=== PATIENT | male | born 1945 | race Caucasian/White ===

== ENCOUNTER → 2016-11-10 | Outpatient (REF) | payer MEDICARE, OTHER ==
[2016-11-10 12:40] LABS: ALBUMIN 3.6 GM/DL (3.2-5.2); ALBUMIN/GLOBULIN RATIO 1.29 (1.00-1.93); ALKALINE PHOSPHATASE 115 U/L (45-117); ALT/SGPT 19 U/L (12-78); ANION GAP 8 MEQ/L (8-16); AST/SGOT 23 U/L (15-37); BILIRUBIN,TOTAL 1.3 MG/DL (0.2-1.0); BLOOD UREA NITROGEN 12 MG/DL (7-18); CARBON DIOXIDE LEVEL 31 MEQ/L (21-32); CHLORIDE LEVEL 104 MEQ/L (98-107); CHOLESTEROL LEVEL 151 MG/DL (<200); GLOMERULAR FILTRATION RATE > 60.0 (>49); GLUCOSE, FASTING 113 MG/DL (80-110); POTASSIUM SERUM 3.3 MEQ/L (3.5-5.1); SODIUM LEVEL 143 MEQ/L (136-145); TOTAL PROTEIN 6.4 GM/DL (6.4-8.2); TRIGLYCERIDES LEVEL 124 MG/DL (<150)
[2016-11-11 14:16] LABS: PSA TOTAL 17.2 ng/mL (0.0-4.0)
== END ==
LOC: M SFHCCLAY 07:04
PROVIDERS: ATTEND Family Medicine
DX: E78.2 Mixed hyperlipidemia (principal); I10 Essential (primary) hypertension; R97.20 Elevated prostate specific antigen [PSA]

== ENCOUNTER → 2016-12-14 | Outpatient (CLI) | payer MEDICARE, OTHER ==
[2016-12-14 18:33] LABS: ANION GAP 7 MEQ/L (8-16); BLOOD UREA NITROGEN 15 MG/DL (7-18); CALCIUM LEVEL 8.7 MG/DL (8.8-10.2); CARBON DIOXIDE LEVEL 30 MEQ/L (21-32); CHLORIDE LEVEL 101 MEQ/L (98-107); CREATININE FOR GFR 0.92 MG/DL (0.70-1.30); GLOMERULAR FILTRATION RATE > 60.0 (>49); GLUCOSE, FASTING 90 MG/DL (80-110); POTASSIUM SERUM 4.5 MEQ/L (3.5-5.1); SODIUM LEVEL 138 MEQ/L (136-145)
== END ==
LOC: M SMT 11:53
PROVIDERS: ATTEND Nurse Practitioner Women's Health
DX: R97.20 Elevated prostate specific antigen [PSA] (principal)
CPT/HCPCS: 36415; 80048; G0463

== ENCOUNTER → 2016-12-22 | Outpatient (CLI) | payer MEDICARE, OTHER ==
--- NOTE | 2016-12-22 18:30 | REP ---
MULTIPARAMETRIC PROSTATE MRI STUDY WITH PRE AND POST GADOLINIUM ENHANCED IMAGING: TECHNIQUE: Using a phased array surface coil, small field of view imaging was acquired using T2-weighted scans in the axial, coronal, and sagittal imaging planes. Small field of view diffusion-weighted sequences are acquired. Small field of view axial T1-weighted scans are acquired dynamically after the intravenous administration of 17 mL of ProHance. Using a large field of view, the entire pelvis to the level of the aortic bifurcation was imaged using pre-contrast axial T1 and post-contrast axial T1 fat-saturation images. HISTORY: Elevated prostate specific antigen. COMPARISON: Prior MRI 01/22/2015. FINDINGS: There is no evidence of pelvic adenopathy or inguinal adenopathy. No suspicious bone lesions are seen. Prostate measurements are 6.1 x 5.4 x 4.5 cm for a total volume of 69.7 mL. There is nodular low and high signal with hypertrophy of the central gland and transitional zone consistent with prostatic hypertrophy. No definite abnormality is seen of the seminal vesicles. Three focal areas of abnormal signal intensity, contrast enhancement and diffusion signal are identified and the prostate gland has regions of interest. First in the left transitional zone extending from the base to the apex, is an oval area of ill-defined predominantly low signal on T2 demonstrating predominantly type 3 enhancement characteristics. The area measures 3.8 x 1.3 x 3.3 cm for a total volume of 10.6 mL. Overall level of suspicion is 3 out of 5 with a clinically significant cancer equivocal. Second in the right mid and basilar anterior transitional zone and right apical transitional zone, is an oval area of predominantly low signal on T2 with ill defined margins. The area measures 2.5 x 1.9 x 3.3 cm for a total volume of 5.6 mL. Enhancement characteristics are predominantly type 3. Overall level of suspicion is 3 out of 5 with clinically significant cancer equivocal. In the left mid and apical posterior peripheral zone and right apical medial peripheral zone there are linear geographic areas of somewhat low signal on T2. These areas demonstrate type 1 and type 2 enhancement. This may represent an area of prostatitis. The area measures approximately 4.1 x 1.0 x 2.0 cm for a total volume of 3.85 mL. Overall level of suspicion is 2 out of 5 with clinically significant cancer unlikely to be present. IMPRESSION: Three focal abnormalities in the prostate gland are identified as regions of interest in the Dyn[employer] software for MR ultrasound fusion biopsy. Signed by Mj Mcfarland MD 12/24/2016 07:02 P
== END ==
LOC: M RAD 10:46
PROVIDERS: ATTEND Nurse Practitioner Women's Health
DX: N42.9 Disorder of prostate, unspecified (principal)
CPT/HCPCS: 72197; A9576

== ENCOUNTER → 2017-01-08 | Outpatient (CLI) | payer MEDICARE, OTHER ==
--- NOTE | 2017-01-08 12:17 | REP ---
TRANSRECTAL PROSTATE ULTRASOUND WITH ULTRASOUND GUIDANCE FOR PROSTATE BIOPSY: Transrectal prostate ultrasound performed showing prostate to measure 5.4 x 4.0 x 6.0 cm for a total volume of 67.2 mL. Transrectal ultrasound guidance was provided for biopsy of the prostate utilizing MR ultrasound fusion software. Signed by Mj Mcfarland MD 01/08/2017 05:21 P
== END ==
LOC: M SMT PRO 08:06
PROVIDERS: ATTEND Urology
DX: R97.20 Elevated prostate specific antigen [PSA] (principal); N41.8 Other inflammatory diseases of prostate
CPT/HCPCS: 55700; 76872; 76942; G0416

== ENCOUNTER → 2017-04-07 | Outpatient (REF) | payer MEDICARE, OTHER ==
[2017-04-08 14:17] LABS: PSA FREE 0.88 ng/mL; PSA TOTAL 9.8 ng/mL (0.0-4.0)
== END ==
LOC: M SFHCCLAY 07:29
PROVIDERS: ATTEND Urology
DX: R97.20 Elevated prostate specific antigen [PSA] (principal)

== ENCOUNTER → 2017-09-20 | Outpatient (CLI) | payer MEDICARE, OTHER | LOC: M CLY 09:40 | DX: R50.9 Fever, unspecified (principal); R05 Cough; R93.8 Abnormal findings on diagnostic imaging of other specified body structures | CPT/HCPCS: 71046; 87804 ==

== ENCOUNTER → 2017-10-11 | Outpatient (REF) | payer MEDICARE, OTHER ==
[2017-10-11 12:02] LABS: ALBUMIN 3.7 GM/DL (3.2-5.2); ALBUMIN/GLOBULIN RATIO 1.12 (1.00-1.93); ALKALINE PHOSPHATASE 127 U/L (45-117); ALT/SGPT 21 U/L (12-78); ANION GAP 11 MEQ/L (8-16); AST/SGOT 20 U/L (7-37); BILIRUBIN,TOTAL 0.7 MG/DL (0.2-1.0); BLOOD UREA NITROGEN 16 MG/DL (7-18); CALCIUM LEVEL 9.4 MG/DL (8.8-10.2); CARBON DIOXIDE LEVEL 27 MEQ/L (21-32); CHLORIDE LEVEL 104 MEQ/L (98-107); CHOLESTEROL LEVEL 160 MG/DL (<200); CHOLESTEROL RISK RATIO 2.285 (<5); GLOMERULAR FILTRATION RATE > 60.0 (>49); GLUCOSE, FASTING 107 MG/DL (70-100); HDL CHOLESTEROL 70 MG/DL (>40); LDL CHOLESTEROL 71.2 MG/DL (<100); NON-HDL-C 90 MG/DL; POTASSIUM SERUM 4.3 MEQ/L (3.5-5.1); SODIUM LEVEL 142 MEQ/L (136-145); TRIGLYCERIDES LEVEL 94 MG/DL (<150)
[2017-10-13 00:06] LABS: PSA TOTAL 11.7 ng/mL (0.0-4.0)
== END ==
LOC: M SFHCCLAY 07:03
DX: E78.2 Mixed hyperlipidemia (principal); R97.20 Elevated prostate specific antigen [PSA]; I10 Essential (primary) hypertension
CPT/HCPCS: 84443

== ENCOUNTER → 2018-04-11 | Outpatient (REF) | payer MEDICARE, OTHER ==
[2018-04-11 13:51] LABS: PROSTATIC SPECIFIC AG MONITOR 8.85 NG/ML (< 4.0)
== END ==
LOC: M SFHCCLAY 07:13
DX: R97.20 Elevated prostate specific antigen [PSA] (principal)
CPT/HCPCS: 84153

== ENCOUNTER → 2018-05-12 | Outpatient (REF) | payer MEDICARE, OTHER | LOC: M LAB REF 17:27 | DX: D22.5 Melanocytic nevi of trunk (principal) | CPT/HCPCS: 88305 ==

== ENCOUNTER → 2018-08-24 | Outpatient (CLI) | payer MEDICARE, OTHER ==
--- NOTE | 2018-08-24 14:11 | REP ---
Clinical: Trauma. Technique: AP, lateral, bilateral oblique views of the left ankle. Findings: Diffuse soft tissue swelling is appreciated. Age-related degenerative changes are appreciated including elements of chondrocalcinosis. No acute fracture or dislocation. Impression: Swelling. No acute fracture or dislocation. Electronically Signed by Vahid Hwang MD 08/24/2018 02:02 P
== END ==
LOC: M CLY 13:40
PROVIDERS: ATTEND Nurse Practitioner Family
DX: R22.42 Localized swelling, mass and lump, left lower limb (principal); S99.912A Unspecified injury of left ankle, initial encounter; W10.8XXA Fall (on) (from) other stairs and steps, initial encounter; Y92.89 Other specified places as the place of occurrence of the external cause; Y93.H1 Activity, digging, shoveling and raking
CPT/HCPCS: 73610; G0463

== ENCOUNTER → 2018-10-11 | Outpatient (REF) | payer MEDICARE, OTHER ==
[2018-10-12 15:14] LABS: PSA % FREE 9.7 % (.); PSA FREE 0.88 ng/mL; PSA TOTAL 9.1 ng/mL (0.0-4.0)
== END ==
LOC: M LABSMT 07:50 → M LABDRAWC 07:56
PROVIDERS: ATTEND Nurse Practitioner Women's Health
DX: R97.20 Elevated prostate specific antigen [PSA] (principal)

== ENCOUNTER → 2019-03-29 | Outpatient (REF) | payer MEDICARE, OTHER ==
[2019-03-29 11:53] LABS: BLOOD UREA NITROGEN 13 MG/DL (7-18); CALCIUM LEVEL 9.3 MG/DL (8.8-10.2); CARBON DIOXIDE LEVEL 31 MEQ/L (21-32); CHLORIDE LEVEL 104 MEQ/L (98-107); CREATININE FOR GFR 0.94 MG/DL (0.70-1.30); GLOMERULAR FILTRATION RATE > 60.0 (>42); GLUCOSE, FASTING 104 MG/DL (70-100); SODIUM LEVEL 143 MEQ/L (136-145)
== END ==
LOC: M LABDRAWC 11:12
PROVIDERS: ATTEND Internal Medicine Cardiovascular Disease
DX: I10 Essential (primary) hypertension (principal)

== ENCOUNTER → 2019-04-14 | Outpatient (REF) | payer MEDICARE, OTHER ==
[2019-04-14 12:14] LABS: ALBUMIN 3.4 GM/DL (3.2-5.2); ALT/SGPT 26 U/L (12-78); BILIRUBIN,TOTAL 0.8 MG/DL (0.2-1.0); BLOOD UREA NITROGEN 19 MG/DL (7-18); CALCIUM LEVEL 8.9 MG/DL (8.8-10.2); CARBON DIOXIDE LEVEL 32 MEQ/L (21-32); CHLORIDE LEVEL 98 MEQ/L (98-107); CHOLESTEROL LEVEL 143 MG/DL (<200); CHOLESTEROL RISK RATIO 2.344 (<5); CREATININE FOR GFR 1.01 MG/DL (0.70-1.30); GLOMERULAR FILTRATION RATE > 60.0 (>42); GLUCOSE, FASTING 105 MG/DL (70-100); HDL CHOLESTEROL 61 MG/DL (>40); LDL CHOLESTEROL 62 MG/DL (<100); NON-HDL-C 82 MG/DL; POTASSIUM SERUM 4.3 MEQ/L (3.5-5.1); SODIUM LEVEL 137 MEQ/L (136-145); TOTAL PROTEIN 6.4 GM/DL (6.4-8.2); TRIGLYCERIDES LEVEL 101 MG/DL (<150); TROPONIN I < 0.02 NG/ML (< 0.10)
== END ==
LOC: M LABDRAWC 11:37
PROVIDERS: ATTEND Internal Medicine Cardiovascular Disease
DX: E78.5 Hyperlipidemia, unspecified (principal); R07.9 Chest pain, unspecified

== ENCOUNTER → 2019-04-14 | Outpatient (REF) | payer MEDICARE, OTHER ==
[2019-04-15 14:07] LABS: PSA % FREE 11.1 % (.); PSA FREE 0.69 ng/mL; PSA TOTAL 6.2 ng/mL (0.0-4.0)
== END ==
LOC: M SFHCCLAY 06:59
PROVIDERS: ATTEND Nurse Practitioner Women's Health
DX: R97.20 Elevated prostate specific antigen [PSA] (principal); E78.5 Hyperlipidemia, unspecified; R07.9 Chest pain, unspecified

== ENCOUNTER → 2019-11-07 | Outpatient (REF) | payer MEDICARE, OTHER | LOC: M SFHCCLAY 07:14 | PROVIDERS: ATTEND Urology | DX: R97.20 Elevated prostate specific antigen [PSA] (principal) ==

== ENCOUNTER → 2019-12-26 | Outpatient (REF) | payer MEDICARE, OTHER | LOC: M LAB REF 08:53 | PROVIDERS: ATTEND Dermatology | DX: L72.0 Epidermal cyst (principal) ==

== ENCOUNTER → 2020-02-21 | Outpatient (REF) | payer MEDICARE, OTHER ==
[2020-03-28 05:55] LABS: BLOOD UREA NITROGEN 18 MG/DL (7-18); CARBON DIOXIDE LEVEL 32 MEQ/L (21-32); CHLORIDE LEVEL 101 MEQ/L (98-107); CREATININE FOR GFR 0.96 MG/DL (0.70-1.30); GLOMERULAR FILTRATION RATE > 60.0 (>42); GLUCOSE, FASTING 115 MG/DL (70-100); POTASSIUM SERUM 3.1 MEQ/L (3.5-5.1); SODIUM LEVEL 140 MEQ/L (136-145)
== END ==
LOC: M SFHCCLAY 14:48
PROVIDERS: ATTEND Family Medicine
DX: L03.116 Cellulitis of left lower limb (principal)

== ENCOUNTER → 2020-04-30 | Outpatient (REF) | payer MEDICARE, OTHER ==
[2020-05-02 00:10] LABS: PSA TOTAL 3.5 ng/mL (0.0-4.0)
== END ==
LOC: M SFHCCLAY 07:07
PROVIDERS: ATTEND Urology
DX: R97.20 Elevated prostate specific antigen [PSA] (principal)

== ENCOUNTER → 2020-08-30 | Outpatient (CLI) | payer MEDICARE, OTHER ==
[~2020-08-30] MED LIST: ASPI81TA26 PO; ATOR80TA59; CHLO50TA; EZET10TA21; FINA5TAB2; LOSA100T50; TAMS1CAP17
== END ==
LOC: M LABSMTC 11:15
PROVIDERS: ATTEND Anesthesiology
DX: Z01.812 Encounter for preprocedural laboratory examination (principal); Z20.822 Contact with and (suspected) exposure to COVID-19

== ENCOUNTER 2020-09-04 07:49 | Day surgery (SDC) | payer MEDICARE, OTHER ==
[~2020-09-04] VITALS: Ht 172.7 cm; Wt 88.9 kg
[~2020-09-04 07:49] MED LIST changes: +LIDOCAINE 2% 100MG/5ML SDV (FOR ANES.) As Ordered ONE; +NS 1,000 ML IV ONE; +propofoL 200 MG/20 ML VIAL As Ordered ONE
--- OUTSIDE RECORDS SUMMARY | 2020-09-04 07:53 | CCD | Continuity of Care Document ---
Author Author Donavan MESA PMarAMar Organization Unknown Address [address] [place] [address] Phone [phone] Care Team Providers Care Baker Bread Name Role Phone Jasvir ManM [phone] Problems Description No Information Available Social History Type Date Description Comments Sex Unknown Tobacco Use Start: Unknown End: Unknown Patient is a former smoker Allergies, Adverse Reactions, Alerts Description No Information Available Medications Active Medications SIG Qnty Indications Ordering Provide r Date Euflexxa 20mg/2ML Soln Prefill Syr prasanna rt knee euflexxa #1 06/25/2020 mkm/bc rt knee#2 mkm/tf 07/23/2020 rt knee #3 mkm/hd 08/01/20 Dex Ramírez MD 07/11/2020 Chlorthalidone 50mg Tablets Unknown Losartan Potassium 100mg Tablets Unknown Ezetimibe 10mg Tablets Unknown Atorvastatin Calcium 80mg Tablets Unknown Tamsulosin HCL 0.4mg Capsules Unknown Finasteride 5mg Tablets Unknown Aspirin 81 Low Dose 81mg Chewtabs Unknown Advair Diskus 250-50mcg/Dose Aeros ol 1 puff twice a day Unknown Ventolin HFA 108(90Base) mcg/Act A erosol 2 puffs qid/prn Unknown Nitroglycerin 0.4mg Tablets Sub as needed Unknown Montelukast Sodium 10mg Tablets 1 by mouth every day Unknown Immunizations Description No Information Available Vital Signs Date Vital Result Comment 07/09/2020 10:57am Body Temperature 97.1 F Height 67.5 inches 5'7.50" Weight 196.50 lb BMI (Body Mass Index) 30.3 kg/m2 Results Description No Information Available Procedures Date Code Description Status 08/01/2020 Inject/Drain Joint/Bursa Major C ompleted 07/23/2020 Inject/Drain Joint/Bursa Major C ompleted 07/11/2020 Inject/Drain Joint/Bursa Major C ompleted 05/09/2020 60665 X-Ray Knee Ap & Lateral W/Obliqu es Three Views Completed 05/09/2020 Inject/Drain Joint/Bursa Major C ompleted Medical Devices Description No Information Available Encounters Type Date Location Provider Dx Diagnosis Office Visit 07/23/2020 6:30p Dylan Cooper.A. M17.11 Unilateral primary osteoarthritis, right knee Office Visit 07/11/2020 3:30p Dylan Cooper.AMar M17.11 Unilateral primary osteoarthritis, right knee Office Visit 07/09/2020 11:00a Adriel Sierra MD M1 7.11 Unilateral primary osteoarthritis, right knee Office Visit 05/09/2020 10:45a Adriel Sierra MD M1 7.11 Unilateral primary osteoarthritis, right knee Assessments Date Code Description Provider 08/01/2020 M17.11 Unilateral primary osteoarthriti s, right knee Dylan Fierro.A. 07/23/2020 M17.11 Unilateral primary osteoarthriti s, right knee Corey Mesa P.A. 07/11/2020 M17.11 Unilateral primary osteoarthriti s, right knee Corey Mesa P.A. 07/09/2020 M17.11 Unilateral primary osteoarthriti s, right knee Rajesh Sierra MD 07/09/2020 M17.11 Unilateral primary osteoarthriti s, right knee Rajesh Sierra MD 05/09/2020 M17.11 Unilateral primary osteoarthriti s, right knee Rajesh Sierra MD Plan of Treatment No Information Available Functional Status Description No Information Available Mental Status Description No Information Available Referrals Refer to Reason for Referral Status Appt Date Shona Sierra MD Right knee Euflexxa-No autho rization req- Passing to sched. MLB Created [facility], [address] [place] [address] [phone]
--- OUTSIDE RECORDS SUMMARY | 2020-09-04 07:53 | CCD | Continuity of Care Document ---
Author Author Donavan GIRALDO PMarAMar Organization Unknown Address [address] [place] [address] Phone [phone] Care Team Providers Care Cutter Grind Tool Technician Name Role Phone Jasvir ManM [phone] Problems Description No Information Available Social History [...] Information Available Procedures Date Code Description Status 07/23/2020 Inject/Drain Joint/Bursa Major C ompleted 07/11/2020 Inject/Drain Joint/Bursa Major C ompleted 05/09/2020 62751 X-Ray Knee Ap & Lateral W/Obliqu es Three Views Completed 05/09/2020 Inject/Drain Joint/Bursa Major C ompleted Medical Devices Description No Information Available Encounters Type Date Location Provider Dx Diagnosis Office Visit 07/23/2020 6:30p [facility] M17.11 Unilateral primary osteoarthritis, right knee Office Visit 07/11/2020 3:30p [facility] Ern[facility] M17.11 Unilateral primary osteoarthritis, right knee Office Visit 07/09/2020 11:00a Haskellkyrie Sierra MD M1 7.11 Unilateral primary osteoarthritis, right knee Office Visit 05/09/2020 10:45a Haskellkyrie Sierra MD M1 7.11 Unilateral primary osteoarthritis, right knee Assessments Date Code Description Provider 07/23/2020 M17.11 Unilateral primary osteoarthriti s, right knee Shannon FierroA. 07/11/2020 M17.11 Unilateral primary osteoarthriti s, right knee Shannon FierroA. 07/09/2020 M17.11 Unilateral primary osteoarthriti s, right knee Rajesh Sierra MD 07/09/2020 M17.11 Unilateral primary osteoarthriti s, right knee Rajesh Sierra MD 05/09/2020 M17.11 Unilateral primary osteoarthriti s, right knee Rajesh Sierra MD Plan of Treatment No Information Available Functional Status Description No Information Available Mental Status Description No Information Available Referrals Refer to Reason for Referral Status Appt Shona Sierra MD Right knee Euflexxa-No autho rization req- Passing to sched. MLB Created [address] [place] [address], [address] [place] [address] [phone]
--- OUTSIDE RECORDS SUMMARY | 2020-09-04 07:53 | CCD | Continuity of Care Document ---
Author Author Donavan SIERRA MD Organization Unknown Address [address] [place] [address], [address] [address] Phone [phone] Care Team Providers Care Insurance Instructor Name Role Phone Jasvir ManM [phone] Problems Description No Information Available Social History Type Date Description Comments Sex Unknown Tobacco Use Start: Unknown End: Unknown Patient is a former smoker Allergies, Adverse Reactions, Alerts Description No Information Available Medications Active Medications SIG Qnty Indications Ordering Provide r Date Euflexxa 20mg/2ML Soln Prefill Syr prasanna rt knee euflexxa #1 06/25/2020 mkm/bc rt knee#2 MKM/TF 07/23/2020 Dex Ramírez MD 07/11/2020 Chlorthalidone 50mg Tablets [...] 07/11/2020 Inject/Drain Joint/Bursa Major C ompleted 05/09/2020 04292 X-Ray Knee Ap & Lateral W/Obliqu es Three Views Completed 05/09/2020 Inject/Drain Joint/Bursa Major C ompleted Medical Devices Description No Information Available Encounters Type Date Location Provider Dx Diagnosis Office Visit 07/23/2020 6:30p [facility] M17.11 Unilateral primary osteoarthritis, right knee Office Visit 07/11/2020 3:30p [facility] M17.11 Unilateral primary osteoarthritis, right knee Office Visit 07/09/2020 11:00a [place] Rajesh Sierra MD M1 7.11 Unilateral primary osteoarthritis, right knee Office Visit 05/09/2020 10:45a [place] Rajesh Sierra MD M1 7.11 Unilateral primary osteoarthritis, right knee Assessments Date Code Description Provider 07/23/2020 M17.11 Unilateral primary osteoarthriti s, right knee Shannon FierroAMar 07/11/2020 M17.11 Unilateral primary osteoarthriti s, right knee Shannon FierroA. 07/09/2020 M17.11 Unilateral primary osteoarthriti s, right knee Rajesh Sierra MD 07/09/2020 M17.11 Unilateral primary osteoarthriti s, right knee Rajesh Sierra MD 05/09/2020 M17.11 Unilateral primary osteoarthriti s, right knee Rajesh Sierra MD Plan of Treatment Future Appointment(s):* 08/01/2020 5:00 pm - [facility] Fierro at [place] Functional Status Description No Information Available Mental Status Description No Information Available Referrals Refer to Dr Reason for Referral Status Appt Date Shona Sierra MD Right knee Euflexxa-No autho rization req- Passing to sched. MLB Created [address] [facility], [address] [place] [address] [phone]
--- OUTSIDE RECORDS SUMMARY | 2020-09-04 07:53 | CCD | Continuity of Care Document ---
Author Author Donavan MESA PMarAMar Organization Unknown Address [address] [place] [address] Phone [phone] Care Team Providers Care Division Supervisor Name Role Phone Jasvir ManM [phone] Problems Description No Information Available Social History [...] 07/11/2020 Inject/Drain Joint/Bursa Major C ompleted 05/09/2020 40884 X-Ray Knee Ap & Lateral W/Obliqu es Three Views Completed 05/09/2020 Inject/Drain Joint/Bursa Major C ompleted Medical Devices Description No Information Available Encounters Type Date Location Provider Dx Diagnosis Office Visit 08/01/2020 5:00p Shannon CooperAMar M17.11 Unilateral primary osteoarthritis, right knee Office Visit 07/23/2020 6:30p Shannon CooperAMar M17.11 Unilateral primary osteoarthritis, right knee Office Visit 07/11/2020 3:30p Shannon CooperAMar M17.11 Unilateral primary osteoarthritis, right knee Office Visit 07/09/2020 11:00a Adriel Sierra MD M1 7.11 Unilateral primary osteoarthritis, right knee Office Visit 05/09/2020 10:45a Adriel Sierra MD M1 7.11 Unilateral primary osteoarthritis, right knee Assessments Date Code Description Provider 08/01/2020 M17.11 Unilateral primary osteoarthriti s, right knee Corey Mesa P.A. 07/23/2020 M17.11 Unilateral primary osteoarthriti s, right knee Shannon FierroA. 07/11/2020 M17.11 Unilateral primary osteoarthriti s, right knee Dylan Fierro.A. 07/09/2020 M17.11 Unilateral primary osteoarthriti s, right [...] rization req- Passing to sched. MLB Created [facility], [address] [place] [address] [phone]
--- OUTSIDE RECORDS SUMMARY | 2020-09-04 07:53 | CCD ---
Author Author [facility] Organization [facility] Address Unknown Phone Unavailable Care Team Providers Care Glass Blowing Instructor Name Role Phone Abby Moran Unavailable PROBLEMS Type Condition ICD9-CM Code XEA07-MR Code Onset Dates Condition S tatus SNOMED Code Notes Problem Elevated PSA R97.2 Active 302554957 Problem Decreased libido R68.82 Active 8686921 Problem Essential hypertension I10 Active 19298758 Problem Mixed hyperlipidemia E78.2 Active 478855436 Problem Keratinous cyst L72.0 Active 869591428 Problem Franks angioma D18.01 Active 6179976 Problem PSA elevation R97.20 Active 908957854 Problem Coronary artery disease invo lving hoh coronary artery of hoh heart, angina presence unspecified I25.10 Active 1 247033223689 Problem Chronic obstructive pulmonary disease, unspecified COPD ty pe J44.9 Active 29278240 Problem Lower urinary tract symptoms due to benign prost atic hyperplasia N40.1 Active 858177639 Problem Other skin changes due to chronic exposure to no nionizing radiation L57.8 Active 293960884 Problem Xerosis cutis L85.3 Active 11566160 Problem Seborrheic keratoses L82.1 Active 312731589 Problem Lentigines L81.4 Active 862567977 Problem Acrochordon L91.8 Active 974185932 Problem Nevus of scalp D22.4 Active 657276076 Problem Elevated prostate specific antigen [PSA] R97.20 Active 031570552 Problem Dyslipidemia E78.5 Active 788760199 Problem Fatigue, unspecified type R53.83 Active 426536 01 Problem Hypertensive heart disease without heart failure I 11.9 Active 89844830 Problem Arthropathy M12.9 Active 966714176 Problem Benign prostatic hyperplasia without lower urina ry tract symptoms N40.0 Active 621996170 Problem 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 Active 0574488376 102 Problem History of elevated PSA Z87.898 Active 37306491 5 Problem BPH (benign prostatic hypertrophy) with urinary obstructio n N40.1 Active 384972412 Problem Memory impairment R41.3 Active 863647881 ALLERGIES Allergen (clinical drug ingredient) Drug/Non Drug Allergy do cumented on EMR Reaction Allergy Type Onset Date Status acetaminophen / hydrocodone Hydrocodone-Acetaminophen([facility] Co de:[address]-71) Nausea/Vomiting Drug Allergy Active ENCOUNTERS from 1945 to 2020-07-29 Encounter Location Date Provider Diagnosis [facility] [address] [place] [address] Jul Abby Moran IMMUNIZATIONS Vaccine Route Administration Date Status Pneumococcal Adult 0.5mL (Pneumovax 23) IM Intramuscular Jun 22, 2018 Administered Influenza (High Dose 65 & up) IM Intramuscular May 07, 2017 A dministered Influenza (High Dose 65 & up) IM Intramuscular May 19, 2016 A dministered Influenza (High Dose 65 & up) IM Intramuscular May 01, 2015 A dministered TDAP 0.5mL (Boostrix) IM Intramuscular January 13, 2011 Administe red Pneumococcal 0.5mL (Prevnar 13) IM Intramuscular May 19, 2016 Administered Influenza (18 yrs & older) Flublok IM Intramuscular May 20, 2018 Administered Influenza (6mo & up) Fluzone Unknown Jun 18, 2015 Ref used Influenza (18 yrs & older) Flublok IM Intramuscular May 20, 2020 Administered Influenza (6mo & up) Fluzone IM Apr 27, 2012 Adm inistered Influenza (6mo & up) Fluzone IM Jul 15, 2010 Adm inistered SOCIAL HISTORY Tobacco Use: Social History Observation Description Date Details (start date - stop date) Former Smoker Sex Assigned At : Social History Observation Description Sex Assigned At Unknown Education: Question Answer Notes Level of Education: Finished High School Audit Question Answer Notes Total Score: 4 Interpretation: Alcohol Education Sexual Hx: Question Answer Notes Had sex in the last 12 months (vaginal, oral, or anal)? No Have you ever had an STD? No Drug and Alcohol Question Answer Notes Total Score: 0 Interpretation: No problems reported BMI Care Goal Follow-Up Question Answer Notes Above Normal BMI Follow-Up Giving encouragement to exercise Tobacco Use: Question Answer Notes Are you a: former smoker Quit around 1989 How long has it been since you last smoked? > 10 years REASON FOR REFERRAL No Information VITAL SIGNS No information MEDICATIONS Medication SIG (Take, Route, Frequency, Duration) Notes Start Da te End Date Status Advair Diskus 250-50 MCG/DOSE 1 puff Inhalation Twice a day Oct, Active Chlorthalidone 50 MG 1 tablet in the morning with food Orally Once a day for 30 day(s) Active Losartan Potassium 100 MG 1 tablet Orally Once a day for 90 day(s) Active Aspir-81 81 MG 1 tablet Orally Once a day Active Nitroglycerin 0.4 MG 1 tablet under the tongue an d allow to dissolve as needed Sublingual as directed prn chest pain Active Atorvastatin Calcium 80 MG 1 tablet Orally Once a day for 90 days Active Finasteride 5 MG 1 tablet Orally Once a day for 90 day(s) Mar, Active Tamsulosin HCl 0.4 MG 1 capsule 30 minutes after t he same meal each day Orally Once a day for 90 days Mar, Active Ventolin HFA 108 (90 Base) MCG/ACT 2 puffs as needed I nhalation every 4 hrs for wheezing or chest congestion for 90 day(s) Oct, Active Ezetimibe 10 MG 1 tablet Orally Once a day for 90 days Active PROCEDURES No Information RESULTS No Results REASON FOR VISIT No Information MEDICAL (GENERAL) HISTORY Type Description Date Medical History Hypertension Medical History Hypercholesterolemia Medical History BPH Medical History Elevated PSA Medical History Dry eyes Medical History CAD with stent placement: [facility] : [place] Surgical History Hemorrhoidectomy 1970 Surgical History Lt knee arthroscopy 1977 Surgical History TRUS Bx 2009 Surgical History Rt knee arthroscopy 2009 Surgical History TRUS Biopsy 01/03/2014 Surgical History 2 heart stents 10/20/16 Surgical History MRI FUSION BX 01/08/17 Surgical History Prostate Biopsy 11/2016 Hospitalization History Surgical Related Hospitalization History Swollen feet-[facility] ER [facility] 02/2015 [facility] Goals Section No Information Health Concerns No Information MEDICAL EQUIPMENT No Information MENTAL STATUS No Information FUNCTIONAL STATUS No Information ASSESSMENTS No Information PLAN OF TREATMENT Medication Medication Name Sig Start Date Stop Date Finasteride 5 MG 1 tablet Orally Once a day for 90 day(s) Mar Advair Diskus 250-50 MCG/DOSE 1 puff Inhalation Twice a day 25 A pr, 2017 Ezetimibe 10 MG 1 tablet Orally Once a day for 90 days Next Appt Details Provider Name:Abby Dean, 2020-07 01:00:00 PM, [address] [place], [address], Provider Name:Luis Hart, 2020-12 09:15:00 AM, [address] [facility], [address] Floor, [place], [address], Provider Name:Norm Nuñez, 10:30:00 AM, [address], [place], [address], Insurance Providers Payer Name Payer Address Payer Phone Insured Name Patient Relati onship to Insured Coverage Start Date Coverage End Date FOR LIFE [address] [facility] [phone] NATI GARCÍA MEDICARE Part A and B [address] [facility] [id number] NATI ROSAS 2012
--- OUTSIDE RECORDS SUMMARY | 2020-09-04 07:54 | CCD | Continuity of Care Document ---
Author Author Donavan SIERRA MD Organization Unknown Address [address] [place] [address], [facility] e [address] [place] [address] Phone [phone] Care Team Providers Care Fur Glosser Name Role Phone Jasvir ManM [phone] Problems Description No Information Available Social History [...] 07/11/2020 Inject/Drain Joint/Bursa Major C ompleted 05/09/2020 65341 X-Ray Knee Ap & Lateral W/Obliqu es Three Views Completed 05/09/2020 Inject/Drain Joint/Bursa Major C ompleted Medical Devices Description No Information Available Encounters Type Date Location Provider Dx Diagnosis Office Visit 07/23/2020 6:30p [facility] Shannon FierroAMar M17.11 Unilateral primary osteoarthritis, right knee Office Visit 07/11/2020 3:30p [facility] M17.11 Unilateral primary osteoarthritis, right knee Office Visit 07/09/2020 11:00a [facility] Rajesh Sierra MD M1 7.11 Unilateral primary osteoarthritis, right knee Office Visit 05/09/2020 10:45a [facility] Rajesh Sierra MD M1 7.11 Unilateral primary [...] 08/01/2020 5:00 pm - [facility] Fierro at [facility] Functional Status Description No Information Available Mental Status Description No Information Available Referrals Refer to Dr Reason for Referral Status Appt Date Shona Sierra MD Right knee Euflexxa-No autho rization req- Passing to sched. MLB Created [address] [facility], [address] [place] [address] [phone]
--- OUTSIDE RECORDS SUMMARY | 2020-09-04 07:54 | CCD ---
Author Author [facility] Organization [facility] Address Unknown Phone Unavailable Care Team Providers Care Research Lab Assistant Name Role Phone HernanCarlos trangan Unavailable PROBLEMS Type Condition ICD9-CM Code [id number] Code Onset Dates Condition S tatus SNOMED Code Notes Problem Elevated PSA R97.2 Active 339783392 Problem Decreased libido R68.82 Active 6408118 Problem Essential hypertension I10 Active 49998935 Problem Mixed hyperlipidemia E78.2 Active 086776607 Problem Keratinous cyst L72.0 Active 525480176 Problem Franks angioma D18.01 Active 5150979 Problem PSA elevation R97.20 Active 482542587 Problem Coronary artery disease invo lving [place] coronary artery of [place] heart, angina presence unspecified I25.10 Active 1 082167154361 Problem Chronic obstructive pulmonary disease, unspecified COPD ty pe J44.9 Active 13230844 Problem Lower urinary tract symptoms due to benign prost atic hyperplasia N40.1 Active 222540872 Problem Other skin changes due to chronic exposure to no nionizing radiation L57.8 Active 394640753 Problem Xerosis cutis L85.3 Active 35870306 Problem Seborrheic keratoses L82.1 Active 919904487 Problem Lentigines L81.4 Active 563903475 Problem Acrochordon L91.8 Active 040295622 Problem Nevus of scalp D22.4 Active 480963457 Problem Elevated prostate specific antigen [PSA] R97.20 Active 544221784 Problem Dyslipidemia E78.5 Active 169421369 Problem Fatigue, unspecified type R53.83 Active 791957 01 Problem Hypertensive heart disease without heart failure I 11.9 Active 60774963 Problem Arthropathy M12.9 Active 506995251 Problem Benign prostatic hyperplasia without lower urina ry tract symptoms N40.0 Active 585322927 Problem 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 Active 4773683906 102 Problem History of elevated PSA Z87.898 Active 27056613 5 Problem BPH (benign prostatic hypertrophy) with urinary obstructio n N40.1 Active 293600402 Problem Memory impairment R41.3 Active 352543548 ALLERGIES Allergen (clinical drug ingredient) Drug/Non Drug Allergy do cumented on EMR Reaction Allergy Type Onset Date Status acetaminophen / hydrocodone Hydrocodone-Acetaminophen([facility] Co de:[address]-17) Nausea/Vomiting Drug Allergy Active ENCOUNTERS from 1945 to 2020-07-06 Encounter Location Date Provider Diagnosis [facility] [address] [place] [address] Jun Abby Moran IMMUNIZATIONS Vaccine Route Administration Date Status Influenza (High Dose 65 & up) IM Intramuscular May 07, 2017 A dministered Influenza (High Dose 65 & up) IM Intramuscular May 19, 2016 A dministered Influenza (High Dose 65 & up) IM Intramuscular May 01, 2015 A dministered Pneumococcal Adult 0.5mL (Pneumovax 23) IM Intramuscular Jun 22, 2018 Administered TDAP 0.5mL (Boostrix) IM Intramuscular January 13, [...] Information RESULTS No Results REASON FOR VISIT elevated bp MEDICAL (GENERAL) HISTORY Type Description Date Medical History Hypertension Medical History Hypercholesterolemia Medical History BPH Medical History Elevated PSA Medical History Dry eyes Medical History CAD with stent placement: Edward [facility] : [place] Surgical History Hemorrhoidectomy 1970 Surgical History Lt knee arthroscopy 1977 Surgical History TRUS Bx 2009 Surgical History Rt knee arthroscopy 2009 Surgical History TRUS Biopsy 01/03/2014 Surgical History 2 heart stents 10/20/16 Surgical History MRI FUSION BX 01/08/17 Surgical History Prostate Biopsy 11/2016 Hospitalization History Surgical Related Hospitalization History [place] [place] [facility] 10/20/16 Goals Section No Information Health Concerns No Information MEDICAL EQUIPMENT No Information MENTAL STATUS No Information FUNCTIONAL STATUS No Information ASSESSMENTS No Information PLAN OF TREATMENT Medication Medication Name Sig Start Date Stop Date Ezetimibe 10 MG 1 tablet Orally Once a day for 90 days Next Appt Details Provider Name:Abby Moran, 2020-07 01:00:00 PM, [address] [place], [address], Provider Name:Luis Hart, 2020-12 09:15:00 AM, [address] [facility], [address] Floor, [place], [address], Provider Name:Norm Nuñez, 10:30:00 AM, [address], [place], [address], Insurance Providers Payer Name Payer Address Payer Phone Insured Name Patient Relati onship to Insured Coverage Start Date Coverage End Date MEDICARE Part A and B [address] [facility] [phone] NATI ROSAS 2012 FOR LIFE [address] [facility] [address] NATI GARCÍA self
--- OUTSIDE RECORDS SUMMARY | 2020-09-04 07:54 | CCD | Continuity of Care Document ---
Author Author [facility] Organization Unknown Address [address] [place] [address] Phone [phone] Care Team Providers Care Aircraft Line Assembler Name Role Phone Jasvir ManM [phone] Problems Description No Information Available Social History [...] Information Available Procedures Date Code Description Status 07/11/2020 Inject/Drain Joint/Bursa Major C ompleted 05/09/2020 91282 X-Ray Knee Ap & Lateral W/Obliqu es Three Views Completed 05/09/2020 Inject/Drain Joint/Bursa Major C ompleted Medical Devices Description No Information Available Encounters Type Date Location Provider Dx Diagnosis Office Visit 07/11/2020 3:30p [facility], P.A. M17.11 Unilateral primary osteoarthritis, right knee Office Visit 07/09/2020 11:00a [facility] Rajesh Sierra MD M1 7.11 Unilateral primary osteoarthritis, right knee Office Visit 05/09/2020 10:45a [place] [facility] MD M1 7.11 Unilateral primary osteoarthritis, right knee Assessments Date Code Description Provider 07/11/2020 M17.11 Unilateral primary osteoarthriti s, right knee Corey Mesa, Dylan.A. 07/09/2020 M17.11 Unilateral primary osteoarthriti s, right knee Rajesh Sierra MD 05/09/2020 M17.11 Unilateral primary osteoarthriti s, right knee Rajesh Sierra MD Plan of Treatment Future Appointment(s):* 08/01/2020 5:00 pm - Corey Mesa, [facility] at [facility] Functional Status Description No Information Available Mental Status Description No Information Available Referrals Refer to Reason for Referral Status Appt Date Shona Sierra MD Right knee Euflexxa-No autho rization req- Passing to sched. [employer] Created [address], [address] [place] [address] [phone]
--- OUTSIDE RECORDS SUMMARY | 2020-09-04 07:54 | CCD ---
Author Author [facility] Organization [facility] Address Unknown Phone Unavailable Care Team Providers Care Chemotherapist Name Role Phone HernanCarlos tarngan Unavailable PROBLEMS Type Condition ICD9-CM Code IEQ41-JD Code Onset Dates Condition S tatus SNOMED Code Notes Problem Elevated PSA R97.2 Active 765425792 Problem Decreased libido R68.82 Active 2462622 Problem Essential hypertension I10 Active 78359399 Problem Mixed hyperlipidemia E78.2 Active 683701756 Problem Keratinous cyst L72.0 Active 215448679 Problem Franks angioma D18.01 Active 6679730 Problem PSA elevation R97.20 Active 390993702 Problem Coronary artery disease invo lving [place] coronary artery of [place] heart, angina presence unspecified I25.10 Active 1 847172182550 Problem Chronic obstructive pulmonary disease, unspecified COPD ty pe J44.9 Active 36956876 Problem Lower urinary tract symptoms due to benign prost atic hyperplasia N40.1 Active 955385992 Problem Other skin changes due to chronic exposure to no nionizing radiation L57.8 Active 879685496 Problem Xerosis cutis L85.3 Active 71033312 Problem Seborrheic keratoses L82.1 Active 440418132 Problem Lentigines L81.4 Active 567215340 Problem Acrochordon L91.8 Active 366110189 Problem Nevus of scalp D22.4 Active 328602594 Problem Elevated prostate specific antigen [PSA] R97.20 Active 898423093 Problem Dyslipidemia E78.5 Active 760116887 Problem Fatigue, unspecified type R53.83 Active 942514 01 Problem Hypertensive heart disease without heart failure I 11.9 Active 41467274 Problem Arthropathy M12.9 Active 343415186 Problem Benign prostatic hyperplasia without lower urina ry tract symptoms N40.0 Active 331773416 Problem 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 Active 7306727159 102 Problem History of elevated PSA Z87.898 Active 73687493 5 Problem BPH (benign prostatic hypertrophy) with urinary obstructio n N40.1 Active 290705072 Problem Memory impairment R41.3 Active 434422992 ALLERGIES Allergen (clinical drug ingredient) Drug/Non Drug Allergy do cumented on EMR Reaction Allergy Type Onset Date Status acetaminophen / hydrocodone Hydrocodone-Acetaminophen([facility] Co de:[address]-33) Nausea/Vomiting Drug Allergy Active ENCOUNTERS from 1945 to 2020-07-16 Encounter Location Date Provider Diagnosis [facility] [address] [place] [address] Jun [facility] Dyslipidemia E78.5 IMMUNIZATIONS Vaccine Route Administration Date Status Pneumococcal [...] Information RESULTS No Results REASON FOR VISIT renewal MEDICAL (GENERAL) HISTORY Type Description Date Medical History Hypertension Medical History Hypercholesterolemia Medical History BPH Medical History Elevated PSA Medical History Dry eyes Medical History CAD with stent placement: Edward [facility] : [place] Surgical History Hemorrhoidectomy 1970 Surgical History Lt knee arthroscopy 1977 Surgical History TRUS Bx 2009 Surgical History Rt knee arthroscopy 2009 Surgical History TRUS Biopsy 01/03/2014 Surgical History 2 heart stents 10/20/16 Surgical History MRI FUSION BX 01/08/17 Surgical History Prostate Biopsy 11/2016 Hospitalization History Surgical Related Hospitalization History Swollen feet-[facility] ER visit 02/2015 Hospitalization History [facility] 10/20/16 Goals Section No Information Health Concerns No Information MEDICAL EQUIPMENT No Information MENTAL STATUS No Information FUNCTIONAL STATUS No Information ASSESSMENTS Encounter Date Diagnosis Assessment Notes Treatment Notes Treatm ent Clinical Notes Jun, Dyslipidemia (ICD-10 - E78.5) PLAN OF TREATMENT Medication Medication Name Sig Start Date Stop Date Ezetimibe 10 MG 1 tablet Orally Once a day for 90 days Next Appt Details Provider Name:Abby Moran, 2020-07 01:00:00 PM, [address] [place], [address], Provider Name:Luis Hart, 2020-12 09:15:00 AM, [address] [facility], 1[address] Floor, [place], [address], Provider Name:Norm Nuñez, 10:30:00 AM, [address], [place], [address], Insurance Providers Payer Name Payer Address Payer Phone Insured Name Patient Relati onship to Insured Coverage Start Date Coverage End Date FOR LIFE [address] [facility] [phone] NATI GARCÍA MEDICARE Part A and B [address] [facility] [phone] NATI ROSAS 2010
--- OUTSIDE RECORDS SUMMARY | 2020-09-04 07:54 | CCD ---
Author Author [facility] Organization [facility] Address Unknown Phone Unavailable Care Team Providers Care Printing Table Hand Name Role Phone Abby Moran Unavailable PROBLEMS Type Condition ICD9-CM Code OOZ98-AM Code Onset Dates Condition S tatus SNOMED Code Notes Problem Fatigue, unspecified type R53.83 Active 641571 01 Problem Mixed hyperlipidemia E78.2 Active 813340055 Problem Coronary artery disease invo lving [place] coronary artery of [place] heart, angina presence unspecified I25.10 Active 1 422609098688 Problem Benign prostatic hyperplasia without lower urina ry tract symptoms N40.0 Active 692787517 Problem Lower urinary tract symptoms due to benign prost atic hyperplasia N40.1 Active 563878936 Problem PSA elevation R97.20 Active 431700725 Problem Lentigines L81.4 Active 578569660 Problem Decreased libido R68.82 Active 8530367 Problem Chronic obstructive pulmonary disease, unspecified COPD ty pe J44.9 Active 80022192 Problem Seborrheic keratoses L82.1 Active 088130980 Problem Acrochordon L91.8 Active 559884248 Problem Nevus of scalp D22.4 Active 034419852 Problem History of elevated PSA Z87.898 Active 51390638 5 Problem Other skin changes due to chronic exposure to no nionizing radiation L57.8 Active 429546263 Problem Essential hypertension I10 Active 82077240 Problem BPH (benign prostatic hypertrophy) with urinary obstructio n N40.1 Active 327172631 Problem Xerosis cutis L85.3 Active 49492909 Problem Elevated PSA R97.2 Active 132577582 Problem Arthropathy M12.9 Active 635256573 Problem Franks angioma D18.01 Active 6685422 Problem Keratinous cyst L72.0 Active 884420907 Problem Elevated prostate specific antigen [PSA] R97.20 Active 366390956 Problem 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 Active 0136640178 102 ALLERGIES Allergen (clinical drug ingredient) Drug/Non Drug Allergy do cumented on EMR Reaction Allergy Type Onset Date Status acetaminophen / hydrocodone Hydrocodone-Acetaminophen([facility] Co de:[address]-23) Nausea/Vomiting Drug Allergy Active ENCOUNTERS from 1945 to 2020-06-10 Encounter Location Date Provider Diagnosis [facility] [address] [place] [address] 16 May Abby Moran IMMUNIZATIONS Vaccine Route Administration Date [...] Answer Notes Are you a: former smoker How long has it been since you last smoked? > 10 years REASON FOR REFERRAL No Information VITAL SIGNS No information MEDICATIONS Medication SIG (Take, Route, Frequency, Duration) Notes Start Da te End Date Status Finasteride 5 MG 1 tablet Orally Once a day for 90 day(s) Mar, Active Losartan Potassium 100 MG 1 tablet Orally Once a day for 90 day(s) Active Singulair 10 MG 1 tablet in the evening Orally Once a day for 90 day(s) Oct, Active Ezetimibe 10 MG 1 tablet Orally Once a day for 90 day(s) Active Ventolin HFA 108 (90 Base) MCG/ACT 2 puffs as needed I nhalation every 4 hrs for wheezing or chest congestion for 90 day(s) Oct, Active Atorvastatin Calcium 80 MG 1 tablet Orally Once a day for 90 days Active Chlorthalidone 50 MG 1 tablet in the morning with food Orally Once a day for 30 day(s) Active Advair Diskus 250-50 MCG/DOSE 1 puff Inhalation Twice a day Oct, Active Tamsulosin HCl 0.4 MG 1 capsule 30 minutes after t he same meal each day Orally Once a day for 90 days Mar, Active Nitroglycerin 0.4 MG 1 tablet under the tongue an d allow to dissolve as needed Sublingual as directed prn chest pain Active Aspir-81 81 MG 1 tablet Orally Once a day Active PROCEDURES No Information RESULTS No Results REASON FOR VISIT script MEDICAL (GENERAL) HISTORY Type Description Date Medical History Hypertension Medical History Hypercholesterolemia Medical History BPH Medical History Elevated PSA Medical History Dry eyes Medical History CAD with stent placement: [facility] : [place] Surgical History Hemorrhoidectomy 1970 Surgical History Lt knee arthroscopy 1977 Surgical History TRUS Bx 2009 Surgical History Rt knee arthroscopy 2009 Surgical History TRUS Biopsy 01/03/2014 Surgical History 2 heart stents 10/20/16 Surgical History MRI FUSION BX 01/08/17 Surgical History Prostate Biopsy 11/2016 Hospitalization History Surgical Related Hospitalization History Swollen feet-[facility] ER visit 02/2015 Hospitalization History 10/20/16 Goals Section No Information Health Concerns No Information MEDICAL EQUIPMENT No Information MENTAL STATUS No Information FUNCTIONAL STATUS No Information ASSESSMENTS No Information PLAN OF TREATMENT Medication Medication Name Sig Start Date Stop Date Atorvastatin Calcium 80 MG 1 tablet Orally Once a day for 90 day s Next Appt Details Provider Name:Abby Moran 2020-11 -30 02:00:00 PM, [address] [place], [address], Provider Name:Luis Hart, 2020-12 09:15:00 AM, [address] [facility], 1[address] Floor, [place], [address], Provider Name:Norm Nuñez, 10:30:00 AM, [address], [place], [address], Insurance Providers Payer Name Payer Address Payer Phone Insured Name Patient Relati onship to Insured Coverage Start Date Coverage End Date FOR LIFE [address] [facility] [phone] NATI GARCÍA self MEDICARE Part A and B [address] [facility] [phone] NATI ROSAS 2012
--- OUTSIDE RECORDS SUMMARY | 2020-09-04 07:54 | CCD ---
Author Author [facility] Organization [facility] Address Unknown Phone Unavailable Care Team Providers Care Electric Truck Driver Name Role Phone HernanCarlos trangan Unavailable PROBLEMS Type Condition ICD9-CM Code RCH45-OA Code Onset Dates Condition S tatus SNOMED Code Notes Problem Elevated PSA R97.2 Active 708359906 Problem Decreased libido R68.82 Active 2187591 Problem Essential hypertension I10 Active 79815745 Problem Mixed hyperlipidemia E78.2 Active 222637547 Problem Keratinous cyst L72.0 Active 407172608 Problem Franks angioma D18.01 Active 1406103 Problem PSA elevation R97.20 Active 022455328 Problem Coronary artery disease invo lving [place] coronary artery of [place] heart, angina presence unspecified I25.10 Active 1 345395772077 Problem Chronic obstructive pulmonary disease, unspecified COPD ty pe J44.9 Active 79618535 Problem Lower urinary tract symptoms due to benign prost atic hyperplasia N40.1 Active 243643185 Problem Other skin changes due to chronic exposure to no nionizing radiation L57.8 Active 119632388 Problem Xerosis cutis L85.3 Active 17457805 Problem Seborrheic keratoses L82.1 Active 829562694 Problem Lentigines L81.4 Active 445671252 Problem Acrochordon L91.8 Active 708084850 Problem Nevus of scalp D22.4 Active 238176395 Problem Elevated prostate specific antigen [PSA] R97.20 Active 752207039 Problem Dyslipidemia E78.5 Active 829291324 Problem Fatigue, unspecified type R53.83 Active 380212 01 Problem Hypertensive heart disease without heart failure I 11.9 Active 79597415 Problem Arthropathy M12.9 Active 264080958 Problem Benign prostatic hyperplasia without lower urina ry tract symptoms N40.0 Active 627336848 Problem 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 Active 2094396376 102 Problem History of elevated PSA Z87.898 Active 00039293 5 Problem BPH (benign prostatic hypertrophy) with urinary obstructio n N40.1 Active 290243413 Problem Memory impairment R41.3 Active 863651282 ALLERGIES Allergen (clinical drug ingredient) Drug/Non Drug Allergy do cumented on EMR Reaction Allergy Type Onset Date Status acetaminophen / hydrocodone Hydrocodone-Acetaminophen(FORMERLY NAMED [facility] Co de:[address]-38) Nausea/Vomiting Drug Allergy Active ENCOUNTERS from 1945 to 2020-07-09 Encounter Location Date Provider Diagnosis [facility] [address] [place] [address] May Abby Moran Annual physical exam Z00.00 ; Colon canc er screening Z12.11 ; Screening for AAA (abdominal aortic aneurysm) Z13.6 ; Chronic obstructive pulmonary disease, unspecified COPD type J44.9 ; BPH (benign prostatic hypertrophy) with urinary obstruction N40.1 ; Hypertensive heart disease without heart failure I11.9 ; Dyslipidemia E78.5 and Memory impairment R41.3 IMMUNIZATIONS Vaccine Route Administration Date Status Influenza [...] Finished High School Audit Question Answer Notes Interpretation: Alcohol Education Total Score: 4 Sexual Hx: Question Answer Notes Had sex in the last 12 months (vaginal, oral, or anal)? No Have you ever had an STD? No Drug and Alcohol Question Answer Notes Interpretation: No problems reported Total Score: 0 BMI Care Goal Follow-Up Question Answer Notes Above Normal BMI Follow-Up Giving encouragement to exercise Tobacco Use: Question Answer Notes Are you a: former smoker Quit around 1989 How long has it been since you last smoked? > 10 years REASON FOR REFERRAL No Information VITAL SIGNS Weight 194 lbs lbs May, Height 68.5 in May, BMI 29.07 kg/m2 May, Heart Rate 57 /min May, Respiratory Rate 18 /min May, Temperature 97.9 degrees Fahrenheit May, Oximetry 96%ra May, Blood pressure systolic 154 mm Hg May, Blood pressure diastolic 80 mm Hg May, MEDICATIONS Medication SIG (Take, Route, Frequency, Duration) [...] Information RESULTS No Results REASON FOR VISIT trans from justin almendarez all meds refilled MEDICAL (GENERAL) HISTORY Type Description Date Medical History Hypertension Medical History Hypercholesterolemia Medical History BPH Medical History Elevated PSA Medical History Dry eyes Medical History CAD with stent placement: [facility] : Cindy Surgical History Hemorrhoidectomy 1970 Surgical History Lt knee arthroscopy 1977 Surgical History TRUS Bx 2009 Surgical History Rt knee arthroscopy 2009 Surgical History TRUS Biopsy 01/03/2014 Surgical History 2 heart stents 10/20/16 Surgical History MRI FUSION BX 01/08/17 Surgical History Prostate Biopsy 11/2016 Hospitalization History Surgical Related Hospitalization History Swollen feet-[facility] ER visit 02/2015 Hospitalization History 10/20/16 Goals Section No Information Health Concerns No Information MEDICAL EQUIPMENT No Information MENTAL STATUS No Information FUNCTIONAL STATUS No Information ASSESSMENTS Encounter Date Diagnosis Assessment Notes Treatment Notes Treatm ent Clinical Notes May, Annual physical exam (ICD-10 - Z00.00) Patient presents today for health maintenance examination. Patient's medications, past medical history, surgical history, family history were reviewed. A full review of systems, full physical exam and health maintenance screening were performed. Cognitive assessment: Patient will be seen for further evaluation for full Mini-Mental Status exam May, Colon cancer screening (ICD-10 - Z12.11) Patient will be referred to gastroenterology May, Screening for AAA (abdominal aortic aneurysm) (I CD-10 - Z13.6) Order placed for screening ultrasound May, Chronic obstructive pulmonar y disease, unspecified COPD type (ICD- 10 - J44.9) Patient previously prescribed Singulair. Unable to find a reason for why medication was prescribed. Patient was counseled to stop medication. If he notices a change in his breathing we may restart medication. May, BPH (benign prostatic hypert rophy) with urinary obstruction (ICD-10 - N40.1) Continue care as per urology May, Hypertensive heart disease without heart failure (ICD-10 - I11.9) Continue care as per cardiology May, Dyslipidemia (ICD-10 - E78.5) Refill sent. Continue care as per cardiology May, Memory impairment (ICD-10 - R41.3) PLAN OF TREATMENT Medication Medication Name Sig Start Date Stop Date Ezetimibe 10 MG 1 tablet Orally Once a day for 90 days Treatment Notes Assessment Notes Clinical Notes Annual physical exam Patient presents to day for health maintenance examination. Patient's medications, past medical history, surgical history, family history were reviewed. A full review of systems, full physical exam and h ealth maintenance screening were performed. Cognitive assessment: Patient will be seen for further evaluation for full Mini-Mental Status exam Colon cancer screening Patient will be r eferred to gastroenterology Screening for AAA (abdominal aortic aneurysm) Order placed for screening ultrasound Chronic obstructive pulmonary disease, unspecified COPD type Patient previously prescribed Singulair. Unable to find a reason for why medication was prescribed. Patient was counseled to stop medication. If he notices a change in his breathing we may restart medication. BPH (benign prostatic hypertrophy) with urinary obstruction Continue care as per urology Hypertensive heart disease without heart failure Continue care as per cardiology Dyslipidemia Refill sent. Continu e care as per cardiology Treatment Notes Test Name Order Date [facility] ABD AORTA SCREENING U/S 2020-07-09 Next Appt Details 4-6 evaluate memory: MMSE Reason: Provider Name:Abby Moran, 2020-07 01:00:00 PM, [address] [place], [address], Provider Name:Luis Hart, 2020-12 09:15:00 AM, [address] [facility], 1st Floor, [place], [address], Provider Name:Norm Nuñez, 10:30:00 AM, [address], [place], [address], Insurance Providers Payer Name Payer Address Payer Phone Insured Name Patient Relati onship to Insured Coverage Start Date Coverage End Date FOR LIFE [address] [facility] [phone] NATI GARCÍA MEDICARE Part A and B [address] [facility] [address] NATI ROSAS 2012
--- OUTSIDE RECORDS SUMMARY | 2020-09-04 07:54 | CCD | Continuity of Care Document ---
Author Author Donavan MESA PM[facility] Organization Unknown Address [address] [place] [address], [address] [address] Phone [phone] Care Team Providers Care Sign Carpenter Name Role Phone Jasvir ManM [phone] Problems Description No Information Available Social History Type Date Description Comments Sex Unknown Tobacco Use Start: Unknown End: Unknown Patient is a former smoker Allergies, Adverse Reactions, Alerts Description No Information Available Medications Active Medications SIG Qnty Indications Ordering Provide r Date Euflexxa 20mg/2ML Soln Prefill Syr prasanna RT knee euflexxa #1 06/25/2020 mkm/bc Kyler Fry MD 07/11/2020 Chlorthalidone 50mg Tablets Unknown Losartan [...] 07/11/2020 Inject/Drain Joint/Bursa Major C ompleted 05/09/2020 07871 X-Ray Knee Ap & Lateral W/Obliqu es Three Views Completed 05/09/2020 Inject/Drain Joint/Bursa Major C ompleted Medical Devices Description No Information Available Encounters Type Date Location Provider Dx Diagnosis Office Visit 07/11/2020 3[facility] M17.11 Unilateral primary osteoarthritis, right knee Office Visit 07/09/2020 11:00a [place] Rajesh Sierra MD M1 7.11 Unilateral primary osteoarthritis, right knee Office Visit 05/09/2020 10:45a [place] Sierra MD M1 7.11 Unilateral primary osteoarthritis, right knee Assessments Date Code Description Provider 07/11/2020 M17.11 Unilateral primary osteoarthriti s, right knee Humberto Fierro 07/09/2020 M17.11 Unilateral primary osteoarthriti s, right knee Rajesh Sierra MD 05/09/2020 M17.11 Unilateral primary osteoarthriti s, right knee Rajesh Sierra MD Plan of Treatment Future Appointment(s):* 08/01/2020 5:00 pm - [facility] [place] [place] [facility] [place] Functional Status Description No Information Available Mental Status Description No Information Available Referrals Refer to Dr Reason for Referral Status Appt Date Shona Sierra MD Right knee Euflexxa-No autho rization req- Passing to sched. MLB Created [facility], [address] [place] [address] [phone]
--- OUTSIDE RECORDS SUMMARY | 2020-09-04 07:54 | CCD ---
Author Author [facility] Organization [facility] Address Unknown Phone Unavailable Care Team Providers Care Tire Repair Mechanic Name Role Phone Ashely Jerez Unavailable PROBLEMS Type Condition ICD9-CM Code XXP07-MC Code Onset Dates Condition S tatus SNOMED Code Notes Problem Fatigue, unspecified type R53.83 Active 758031 01 Problem Mixed hyperlipidemia E78.2 Active 865459219 Problem Coronary artery disease invo lving [place] coronary artery of [place] heart, angina presence unspecified I25.10 Active 1 977527563586 Problem Benign prostatic hyperplasia without lower urina ry tract symptoms N40.0 Active 254148871 Problem Lower urinary tract symptoms due to benign prost atic hyperplasia N40.1 Active 485119431 Problem PSA elevation R97.20 Active 905188010 Problem Lentigines L81.4 Active 214197222 Problem Decreased libido R68.82 Active 9829189 Problem Chronic obstructive pulmonary disease, unspecified COPD ty pe J44.9 Active 78347355 Problem Seborrheic keratoses L82.1 Active 617685681 Problem Acrochordon L91.8 Active 882203355 Problem Nevus of scalp D22.4 Active 264329166 Problem History of elevated PSA Z87.898 Active 18882785 5 Problem Other skin changes due to chronic exposure to no nionizing radiation L57.8 Active 593332718 Problem Essential hypertension I10 Active 41277535 Problem BPH (benign prostatic hypertrophy) with urinary obstructio n N40.1 Active 952882512 Problem Xerosis cutis L85.3 Active 08739495 Problem Elevated PSA R97.2 Active 460082774 Problem Arthropathy M12.9 Active 673092005 Problem Franks angioma D18.01 Active 2457177 Problem Keratinous cyst L72.0 Active 232895208 Problem Elevated prostate specific antigen [PSA] R97.20 Active 141107913 Problem 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 Active 9366410770 102 ALLERGIES Allergen (clinical drug ingredient) Drug/Non Drug Allergy do cumented on EMR Reaction Allergy Type Onset Date Status acetaminophen / hydrocodone Hydrocodone-Acetaminophen([facility] Co de:[address]-93) Nausea/Vomiting Drug Allergy Active ENCOUNTERS from 1945 to 2020-06-10 Encounter Location Date Provider Diagnosis [facility] [address] [place] [address] 26 Apr Ashely Jerez Need for influenza vaccination Z23 IMMUNIZATIONS Vaccine Route Administration Date Status Influenza [...] tablet Orally Once a day Active PROCEDURES Procedure Date Ordered Result Body Site Immunization: Flublok Quadrivalent (18 years & older) 0.5mL IM (Influenza) 2020-05-20 N/A RESULTS No Results REASON FOR VISIT flu shot MEDICAL (GENERAL) HISTORY Type Description Date Medical History Hypertension Medical History Hypercholesterolemia Medical History BPH Medical History Elevated PSA Medical History Dry eyes Medical History CAD with stent placement: Edward [facility] : Cindy Surgical History Hemorrhoidectomy 1970 Surgical History Lt knee arthroscopy 1977 Surgical History TRUS Bx 2009 Surgical History Rt knee arthroscopy 2009 Surgical History TRUS Biopsy 01/03/2014 Surgical History 2 heart stents 10/20/16 Surgical History MRI FUSION BX 01/08/17 Surgical History Prostate Biopsy 11/2016 Hospitalization History Surgical Related Hospitalization History Swollen feet-[facility] ER visit 02/2015 Hospitalization History [facility] 10/20/16 Goals Section No Information Health Concerns No Information MEDICAL EQUIPMENT No Information MENTAL STATUS No Information FUNCTIONAL STATUS No Information ASSESSMENTS Encounter Date Diagnosis Assessment Notes Treatment Notes Treatm ent Clinical Notes Apr, Need for influenza vaccination (ICD-10 - Z23) PLAN OF TREATMENT Medication Medication Name Sig Start Date Stop Date Atorvastatin Calcium 80 MG 1 tablet Orally Once a day for 90 day s Next Appt Details as needed Reason: Provider Name:Abby Moran, 2020-05 02:00:00 PM, [address] [place], [address], Provider Name:Luis Hart, 2020-12 09:15:00 AM, [address] [facility], [address], [place], [address], Provider Name:Norm Nuñez, 10:30:00 AM, [address], [place], [address], Insurance Providers Payer Name Payer Address Payer Phone Insured Name Patient Relati onship to Insured Coverage Start Date Coverage End Date MEDICARE Part A and B [address] [facility] [phone] NATI ROSAS 2012 FOR LIFE [address] [facility] [id number] NATI GARCÍA
--- OUTSIDE RECORDS SUMMARY | 2020-09-04 07:54 | CCD ---
Author Author [facility] Organization [facility] Address Unknown Phone Unavailable Care Team Providers Care Senior Validation Engineer Name Role Phone Jo Ann Adkins Unavailable PROBLEMS Type Condition ICD9-CM Code NRP12-TH Code Onset Dates Condition S tatus SNOMED Code Notes Problem Elevated PSA R97.2 Active 292007477 Problem Decreased libido R68.82 Active 7231403 Problem Essential hypertension I10 Active 51191849 Problem Mixed hyperlipidemia E78.2 Active 915794883 Problem Keratinous cyst L72.0 Active 414072111 Problem Franks angioma D18.01 Active 4515733 Problem PSA elevation R97.20 Active 372673692 Problem Coronary artery disease invo lving [place] coronary artery of [place] heart, angina presence unspecified I25.10 Active 1 144191958487 Problem Chronic obstructive pulmonary disease, unspecified COPD ty pe J44.9 Active 32237221 Problem Lower urinary tract symptoms due to benign prost atic hyperplasia N40.1 Active 889489094 Problem Other skin changes due to chronic exposure to no nionizing radiation L57.8 Active 128494151 Problem Xerosis cutis L85.3 Active 52695381 Problem Seborrheic keratoses L82.1 Active 736720467 Problem Lentigines L81.4 Active 621609819 Problem Acrochordon L91.8 Active 813646290 Problem Nevus of scalp D22.4 Active 755411769 Problem Elevated prostate specific antigen [PSA] R97.20 Active 796501615 Problem Dyslipidemia E78.5 Active 609698232 Problem Fatigue, unspecified type R53.83 Active 077340 01 Problem Hypertensive heart disease without heart failure I 11.9 Active 76653706 Problem Arthropathy M12.9 Active 617781603 Problem Benign prostatic hyperplasia without lower urina ry tract symptoms N40.0 Active 067165943 Problem 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 Active 0676626895 102 Problem History of elevated PSA Z87.898 Active 93537977 5 Problem BPH (benign prostatic hypertrophy) with urinary obstructio n N40.1 Active 550996984 Problem Memory impairment R41.3 Active 106124392 ALLERGIES Allergen (clinical drug ingredient) Drug/Non Drug Allergy do cumented on EMR Reaction Allergy Type Onset Date Status acetaminophen / hydrocodone Hydrocodone-Acetaminophen([facility] Co de:[address]-95) Nausea/Vomiting Drug Allergy Active ENCOUNTERS from 1945 to 2020-07-25 Encounter Location Date Provider Diagnosis [facility] [address] [place] [address] Jun Jo Ann Adkins IMMUNIZATIONS Vaccine Route Administration Date Status Influenza [...] Information RESULTS No Results REASON FOR VISIT finasteride refill MEDICAL (GENERAL) HISTORY Type Description Date Medical History Hypertension Medical History Hypercholesterolemia Medical History BPH Medical History Elevated PSA Medical History Dry eyes Medical History CAD with stent placement: Edward [facility] : Cindy Surgical History Hemorrhoidectomy 1970 Surgical History Lt knee arthroscopy 1977 Surgical History TRUS Bx 2009 Surgical History Rt knee arthroscopy 2009 Surgical History TRUS Biopsy 01/03/2014 Surgical History 2 heart stents 10/20/16 Surgical History MRI FUSION BX 01/08/17 Surgical History Prostate Biopsy 11/2016 Hospitalization History Surgical Related Hospitalization History Swollen feet-[facility] ER visit 02/2015 Hospitalization History [facility] 10/20/16 Goals Section No Information Health Concerns No Information MEDICAL EQUIPMENT No Information MENTAL STATUS No Information FUNCTIONAL STATUS No Information ASSESSMENTS No Information PLAN OF TREATMENT Medication Medication Name Sig Start Date Stop Date Ezetimibe 10 MG 1 tablet Orally Once a day for 90 days Finasteride 5 MG 1 tablet Orally Once a day for 90 day(s) Mar Next Appt Details Provider Name:Abby Juannasleeann, 2020-07 01:00:00 PM, [address] [place], [address], Provider Name:Luis Hart, 2020-12 09:15:00 AM, [address] [facility], 1st Floor, [place], [address], Provider Name:Norm Nuñez, 10:30:00 AM, [address], [place], [address], Insurance Providers Payer Name Payer Address Payer Phone Insured Name Patient Relati onship to Insured Coverage Start Date Coverage End Date FOR LIFE [address] [facility] [phone] NATI GARCÍA MEDICARE Part A and B [address] [facility] [address] NATI ROSAS 2012
--- OUTSIDE RECORDS SUMMARY | 2020-09-04 07:54 | CCD | Continuity of Care Document ---
Author Author Donavan GIRALDO PMarAMar Organization Unknown Address [address] [place] [address], [address] [address] Phone [phone] Care Team Providers Care Remote Sensing Scientist Name Role Phone Jasvir ManM [phone] Problems Description No Information Available Social History [...] Information Available Procedures Date Code Description Status 05/09/2020 11100 X-Ray Knee Ap & Lateral W/Obliqu es Three Views Completed 05/09/2020 Inject/Drain Joint/Bursa Major C ompleted Medical Devices Description No Information Available Encounters Type Date Location Provider Dx Diagnosis Office Visit 07/09/2020 11:[place]a [place] MD M1 7.11 Unilateral primary osteoarthritis, right knee Office Visit 05/09/2020 10:45a [place] Sierra MD M1 7.11 Unilateral primary osteoarthritis, right knee Assessments Date Code Description Provider 07/09/2020 M17.11 Unilateral primary osteoarthriti s, right knee Rajesh Sirera MD 05/09/2020 M17.11 Unilateral primary osteoarthriti s, right knee Rajesh Sierra MD Plan of Treatment Future Appointment(s):* 08/01/2020 5:00 pm - [facility] at [place] * 07/23/2020 6:30 pm - [facility] [place] 07/09/2020 - Rajesh Sierra MD* M17.11 Unilateral primary osteoarthritis, right knee* Follow up:* rt knee euflexxa with dpv or p.a Functional Status Description No Information Available Mental Status Description No Information Available Referrals Refer to Dr Reason for Referral Status Appt Date Shona Sierra MD Right knee Euflexxa-No autho rization req- Passing to sched. MLB Created [facility], [address] [place] [address] [phone]
--- OUTSIDE RECORDS SUMMARY | 2020-09-04 07:54 | CCD | Continuity of Care Document ---
Author Author Donavan BECERRA MD Organization Unknown Address [address] [place] [address], [facility] e [address] [place] [address] Phone [phone] Care Team Providers Care Subsystems Engineer Name Role Phone Jasvir ManM [phone] Problems Description No Information Available Social History Type Date Description Comments Sex Unknown Tobacco Use Start: Unknown End: Unknown Patient is a former smoker Allergies, Adverse Reactions, Alerts Description No Information Available Medications Active Medications SIG Qnty Indications Ordering Provide r Date Chlorthalidone 50mg Tablets Unknown Losartan Potassium 100mg [...] Available Procedures Date Code Description Status 05/09/2020 42023 X-Ray Knee Ap & Lateral W/Obliqu es Three Views Completed 05/09/2020 Inject/Drain Joint/Bursa Major C ompleted Medical Devices Description No Information Available Encounters Type Date Location Provider Dx Diagnosis Office Visit 05/09/2020 10:45a [place] Rajesh Becerra MD M1 7.11 Unilateral primary osteoarthritis, right knee Assessments Date Code Description Provider 07/09/2020 M17.11 Unilateral primary osteoarthriti s, right knee Rajesh Becerra MD 05/09/2020 M17.11 Unilateral primary osteoarthriti s, right knee Rajesh Becerra MD Plan of Treatment 07/09/2020 - Rajesh Becerra MD* M17.11 Unilateral primary osteoarthritis, right knee* New Orders:* Euflexxa RT Knee Injection, Ordered: 07/09/20 * Follow up:* rt knee euflexxa with dpv or p.a Functional Status Description No Information Available Mental Status Description No Information Available Referrals Description No Information Available
--- OUTSIDE RECORDS SUMMARY | 2020-09-04 07:55 | CCD ---
Author Author [facility] Organization [facility] Address Unknown Phone Unavailable Care Team Providers Care Credit Coordinator Name Role Phone Henry White MD Unavailable Unavailable Henry White MD Unavailable Unavailable Henry White MD Unavailable Unavailable Henry White MD Unavailable Unavailable Henry White MD Unavailable Unavailable Henry White MD Unavailable Unavailable Henry White MD Unavailable Unavailable Henry White MD Unavailable Unavailable Henry White MD Unavailable Unavailable Henry White MD Unavailable Unavailable Henry White MD Unavailable Unavailable Henry White MD Unavailable Unavailable Henry White MD Unavailable Unavailable Henry White MD Unavailable Unavailable Henry White MD Unavailable Unavailable Henry White MD Unavailable Unavailable Henry White MD Unavailable Unavailable Henry White MD Unavailable Unavailable Henry White MD Unavailable Unavailable Henry White MD Unavailable Unavailable Henry White MD Unavailable Unavailable Henry White MD Unavailable Unavailable Henry White MD Unavailable Unavailable Henry White MD Unavailable Unavailable Henry White MD Unavailable Unavailable Henry White MD Unavailable Unavailable Slezka, Vojtech MD Unavailable Unavailable Slezka Vojtech MD Unavailable Unavailable Slezka Vojtech MD Unavailable Unavailable Slezka, Vojtech MD Unavailable Unavailable Slezka, Vojtech MD Unavailable Unavailable Slezka, Vojtech MD Unavailable Unavailable Slezka Vojtech MD Unavailable Unavailable Slezka, Vojtech MD Unavailable Unavailable Slezka, Vojtech MD Unavailable Unavailable Slezka, Vojtech MD Unavailable Unavailable Slezka, Vojtech MD Unavailable Unavailable Slezka, Vojtech MD Unavailable Unavailable Slezka, Vojtech MD Unavailable Unavailable Slezka, Vojtech MD Unavailable Unavailable Slezka, Vojtech MD Unavailable Unavailable Slezka, Vojtech MD Unavailable Unavailable Slezka, Vojtech MD Unavailable Unavailable Slezka Vojtech MD Unavailable Unavailable Slezka Vojtech MD Unavailable Unavailable Slezka, Vojtech MD Unavailable Unavailable Slezka, Vojtech MD Unavailable Unavailable Slezka, Vojtech MD Unavailable Unavailable Slezka, Vojtech MD Unavailable Unavailable Slezka Vojtech MD Unavailable Unavailable Slezka Vojtech MD Unavailable Unavailable Slezka, Vojtech MD Unavailable Unavailable Slezka, Vojtech MD Unavailable Unavailable Slezka, Vojtech MD Unavailable Unavailable Slezka Vojtech MD Unavailable Unavailable Slezka Vojtech MD Unavailable Unavailable Slezka Vojtech MD Unavailable Unavailable Slezka, Vojtech MD Unavailable Unavailable MCELHERAN, EVANS PA Unavailable Unavailable MCELHERAN, EVANS PA Unavailable Unavailable MCELHERAN, EVANS PA Unavailable Unavailable MCELHERAN, EVANS PA Unavailable Unavailable MCELHERAN, EVANS PA Unavailable Unavailable MCELHERAN, EVANS PA Unavailable Unavailable MCELHERAN, EVANS PA Unavailable Unavailable MCELHERAN, EVANS PA Unavailable Unavailable MCELHERAN, EVANS PA Unavailable Unavailable MCELHERAN, EVANS PA Unavailable Unavailable MCELHERAN, EVANS PA Unavailable Unavailable MCELHERAN, EVANS PA Unavailable Unavailable MCELHERAN, EVANS PA Unavailable Unavailable MCELHERAN, EVANS PA Unavailable Unavailable MCELHERAN, EVANS PA Unavailable Unavailable MCELHERAN, EVANS PA Unavailable Unavailable MCELHERAN, EVANS PA Unavailable Unavailable MCELHERAN, EVANS PA Unavailable Unavailable MCELHERAN, EVANS PA Unavailable Unavailable MCELHERAN, EVANS PA Unavailable Unavailable MCELHERAN, EVANS PA Unavailable Unavailable MCELHERAN, EVANS PA Unavailable Unavailable MCELHERAN, EVANS PA Unavailable Unavailable MCELHERAN, EVANS PA Unavailable Unavailable MCELHERAN, EVANS PA Unavailable Unavailable MCELHERAN, EVANS PA Unavailable Unavailable MCELHERAN, EVANS PA Unavailable Unavailable MCELHERAN, EVANS PA Unavailable Unavailable Vaneenenaam, Shona Melendrez MD Unavailable Unavailable Vaneenenaam, Shona Melendrez MD Unavailable Unavailable Vaneenenaam, Shona Melendrez MD Unavailable Unavailable Vaneenenaam, Shona Melendrez MD Unavailable Unavailable Vaneenenaam, Shona Melendrez MD Unavailable Unavailable Vaneenenaam, Shona Melendrez MD Unavailable Unavailable Vaneenenaam, Shona Melendrez MD Unavailable Unavailable Vaneenenaam, Shona Melendrez MD Unavailable Unavailable Vaneenenaam, Shona Melendrez MD Unavailable Unavailable Vaneenenaam, Shona Melendrez MD Unavailable Unavailable Vaneenenaam, Shona Melendrez MD Unavailable Unavailable Vaneenenaam, Shona Melendrez MD Unavailable Unavailable Vaneenenaam, Shona Melendrez MD Unavailable Unavailable Vaneenantonioam, Shona Melendrez MD Unavailable Unavailable Vaneenenaam, Shona Melendrez MD Unavailable Unavailable Vaneenenaam, Shona Melendrez MD Unavailable Unavailable Vaneenenaam, Shona Melendrez MD Unavailable Unavailable Vaneenenaam, Shona Melendrez MD Unavailable Unavailable Vaneenenaam, Shona Melendrez MD Unavailable Unavailable Vaneenantonioam, Shona Melendrez MD Unavailable Unavailable Vaneenantonioam, Shona Melendrez MD Unavailable Unavailable Vaneenantonioam, Shona Melendrez MD Unavailable Unavailable Vaneenantonioam, Shona Melendrez MD Unavailable Unavailable Vaneenantonioam, Shona Melendrez MD Unavailable Unavailable Vaneenenaam, Shona Melendrez MD Unavailable Unavailable Vaneenantonioam, Shona Melendrez MD Unavailable Unavailable Vaneenantonioam, Shona Melendrez MD Unavailable Unavailable VaneenantonioamShona MD Unavailable Unavailable Vaneenantonioam, Shona Melendrez MD Unavailable Unavailable Vaneenenaam, Shona Melendrez MD Unavailable Unavailable Vaneenenaam, Shona Melendrez MD Unavailable Unavailable VaneenenaamShona MD Unavailable Unavailable Vanyoanam, Shona Melendrez MD Unavailable Unavailable Vanyoanam, Shona Melendrez MD Unavailable Unavailable Vanyoanam, Shona Melendrez MD Unavailable Unavailable Vaneenantonioam, Shona Melendrez MD Unavailable Unavailable Vaneenenaam, Shona Melendrez MD Unavailable Unavailable Vaneenenaam, Shona Melendrez MD Unavailable Unavailable VaneenantonioamShona MD Unavailable Unavailable Vandina, Shona Melendrez MD Unavailable Unavailable Vaneenantonioam, Shona Melendrez MD Unavailable Unavailable Vanyoanam, Shona Melendrez MD Unavailable Unavailable Antwon Leon MD Unavailable Unavailable El-Khally, A Ziad MD Unavailable Unavailable El-Khally, A Ziad MD Unavailable Unavailable El-Khally, A Ziad MD Unavailable Unavailable El-Khally, A Ziad MD Unavailable Unavailable El-Khally, A Ziad MD Unavailable Unavailable El-Khally, A Ziad MD Unavailable Unavailable El-Khally, A Ziad MD Unavailable Unavailable El-Khally, A Ziad MD Unavailable Unavailable El-Khally, A Ziad MD Unavailable Unavailable El-Khally, A Ziad MD Unavailable Unavailable El-Khally, A Ziad MD Unavailable Unavailable El-Khally, A Ziad MD Unavailable Unavailable El-Khally, A Ziad MD Unavailable Unavailable El-Khally, A Ziad MD Unavailable Unavailable El-Khally, A Ziad MD Unavailable Unavailable El-Khally, A Ziad MD Unavailable Unavailable El-Khally, A Ziad MD Unavailable Unavailable El-Khally, A Ziad MD Unavailable Unavailable El-Khally, A Ziad MD Unavailable Unavailable El-Khally, A Ziad MD Unavailable Unavailable El-Khally, A Ziad MD Unavailable Unavailable El-Khally, A Ziad MD Unavailable Unavailable El-Khally, A Ziad MD Unavailable Unavailable El-Khally, A Ziad MD Unavailable Unavailable El-Khally, A Ziad MD Unavailable Unavailable El-Khally, A Ziad MD Unavailable Unavailable El-Khally, A Ziad MD Unavailable Unavailable El-Khally, A Ziad MD Unavailable Unavailable El-Khally, A Ziad MD Unavailable Unavailable El-Khally, A Ziad MD Unavailable Unavailable El-Khally, A Ziad MD Unavailable Unavailable El-Khally, A Ziad MD Unavailable Unavailable El-Khally, A Ziad MD Unavailable Unavailable El-Khally, A Ziad MD Unavailable Unavailable El-Khally, A Ziad MD Unavailable Unavailable El-Khally, A Ziad MD Unavailable Unavailable El-Khally, A Ziad MD Unavailable Unavailable El-Khally, A Ziad MD Unavailable Unavailable [place], N Rafael DRY FOLDER CLOTH Unavailable Unavailable Lolis, N Rafael DRY FOLDER CLOTH Unavailable Unavailable Lolis, N Rafael DRY FOLDER CLOTH Unavailable Unavailable [place], N Rafael DRY FOLDER CLOTH Unavailable Unavailable [place], N Rafael DRY FOLDER CLOTH Unavailable Unavailable Lolis, N Rafael DRY FOLDER CLOTH Unavailable Unavailable [place], N Rafael DRY FOLDER CLOTH Unavailable Unavailable [place], N Rafael DRY FOLDER CLOTH Unavailable Unavailable Lolis, N Rafael DRY FOLDER CLOTH Unavailable Unavailable Lolis, N Rafael DRY FOLDER CLOTH Unavailable Unavailable [place], N Raafel DRY FOLDER CLOTH Unavailable Unavailable [place]olis, N Rafael DRY FOLDER CLOTH Unavailable Unavailable Lolis, N Rafael DRY FOLDER CLOTH Unavailable Unavailable Lolis, N Rafael DRY FOLDER CLOTH Unavailable Unavailable [place], N Rafael DRY FOLDER CLOTH Unavailable Unavailable [place], N Rafael DRY FOLDER CLOTH Unavailable Unavailable [place]olis, N Rafael DRY FOLDER CLOTH Unavailable Unavailable [place], N Rafael DRY FOLDER CLOTH Unavailable Unavailable Lolis, N Rafael DRY FOLDER CLOTH Unavailable Unavailable [place], N Rafael DRY FOLDER CLOTH Unavailable Unavailable [place]olis, N Rafael DRY FOLDER CLOTH Unavailable Unavailable [place], N Rafael DRY FOLDER CLOTH Unavailable Unavailable [place], N Rafael DRY FOLDER CLOTH Unavailable Unavailable [place], N Rafael DRY FOLDER CLOTH Unavailable Unavailable [place], N Rafael DRY FOLDER CLOTH Unavailable Unavailable [place], N Rafael DRY FOLDER CLOTH Unavailable Unavailable [place], N Rafael DRY FOLDER CLOTH Unavailable Unavailable [place], N Rafael DRY FOLDER CLOTH Unavailable Unavailable [place]olis, N Rafael DRY FOLDER CLOTH Unavailable Unavailable Lolis, N Rafael DRY FOLDER CLOTH Unavailable Unavailable Lolis, N Rafael DRY FOLDER CLOTH Unavailable Unavailable Re-disclosure Warning The records that you are about to access may contain information from federally-assisted alcohol or drug abuse programs. If such information is present, then the following federally mandated warning applies: This information has been disclosed to you from records protected by federal confidentiality rules (42 CFR part 2). The federal rules prohibit you from making any further disclosure of this information unless further disclosure is expressly permitted by the written consent of the person to whom it pertains or as otherwise permitted by 42 CFR part 2. A general authorization for the release of medical or other information is NOT sufficient for this purpose. The Federal rules restrict any use of the information to criminally investigate or prosecute any alcohol or drug abuse patient.The records that you are about to access may contain highly sensitive health information, the redisclosure of which is protected by Article 27-F of the [facility] Public Health law. If you continue you may have access to information: Regarding HIV / AIDS; Provided by facilities licensed or operated by the [facility] Office of Mental Health; or Provided by the [facility] Office for People With Developmental Disabilities. If such information is present, then the following [facility] mandated warning applies: This information has been disclosed to you from confidential records which are protected by state law. State law prohibits you from making any further disclosure of this information without the specific written consent of the person to whom it pertains, or as otherwise permitted by law. Any unauthorized further disclosure in violation of state law may result in a fine or correction sentence or both. A general authorization for the release of medical or other information is NOT sufficient authorization for further disc losure. Allergies and Adverse Reactions Type Description Substance Reaction Status Data Source(s ) Drug allergy Hydrocodone-Acetaminophen acetaminophen / hydroc odone Nausea/Vomiting Active eCW1 ([facility]) Encounters Encounter Providers Location Date Indications Data Source(s ) Office Visit Attender: EVANS CASAS Physical Therapy 08/01/2020 04:00:00 PM EST MEDENT ([facility]) Unknown [address] [facility] [id number] 07/29/2020 12:00:00 AM EST eCW1 ([facility]) Unknown [address] [facility] [place] [address] 07/24/2020 12:00:00 AM EST eCW1 ([facility]) Office Visit Attender: EVANS CASAS Physical Therapy 07/23/2020 05:30:00 PM EST MEDENT ([facility]) Unknown [address] [facility] [place] [address] 07/16/2020 12:00:00 AM EST eCW1 ([facility]) Office Visit Attender: EVANS CASAS Physical Therapy 07/11/2020 02:30:00 PM EST MEDENT ([facility]) Outpatient Attender: Shona Sierra MD Physical Therap y 07/09/2020 10:00:00 AM EST MEDENT ([facility]) Outpatient Attender: Rafael MADRIGAL-SJP.NILO 020 12:00:00 AM EST - 07/09/2020 09:09:30 AM EST [facility] Unknown [address] [facility] [address] 07/02/2020 12:00:00 AM EST eCW1 ([facility]) Outpatient Attender: Rafael Danielle NPReferrer: Rafael MADRIGAL-SJP.NILO 07/01/2020 08:04:59 AM EST - 07/01/2020 08:53:13 AM EST [facility] Outpatient [address] [facility] [address] 06/24/2020 12:00:00 AM EST [facility]CW1 ([facility]) Unknown [address] [facility] [address] 06/10/2020 12:00:00 AM EST eCW1 ([facility]) Outpatient [address] [facility] [place] [address] 05/20/2020 12:00:00 AM EDT eCW1 ([facility]) OFFICE OUTPATIENT NEW 30 MINUTES Attender: Shona Jones am, MD Physical Therapy 05/09/2020 10:45:00 AM EDT MEDENT ([facility]) Unknown [address] [facility], [facility] [address] 05/02/2020 12:00:00 AM EDT eCW1 ([facility]) Outpatient [address] [facility] [id number] 04/29/2020 12:00:00 AM EDT eCW1 ([facility]) [facility] Dermatology [address] [place] [address] 01/16/2020 12:00:00 AM EDT eCW1 ([facility]) Unknown [address] [facility] [place] [address] 01/15/2020 12:00:00 AM EDT eCW1 ([facility]) Outpatient Attender: Rafael JOHNSP.NILO-SJShannonNILO 01/08/2020 12 :00:00 AM EDT [facility] Unknown [address] [facility] [place] [address] 01/03/2020 12:00:00 AM EDT eCW1 ([facility]) Unknown [address] [facility] [place] [address] 01/02/2020 12:00:00 AM EDT eCW1 ([facility]) Unknown [address] [facility] [address] 01/02/2020 12:00:00 AM EDT eCW1 ([facility]) Outpatient [address] [facility] [address] 12/26/2019 12:00:00 AM EDT eCW1 ([facility]) [facility] Dermatology [address] [place] [address] 12/20/2019 12:00:00 AM EDT eCW1 ([facility]) [facility] [address] [facility] [address] 12/19/2019 12:00:00 AM EDT eCW1 ([facility]) [facility] Velvet Guerra [address] [place] [address] 12/04/2019 12:00:00 AM EDT eCW1 ([facility]) [facility] Velvet [facility] [address] [place] [address] 11/20/2019 12:00:00 AM EDT eCW1 ([facility]) [facility] Urology [address] [facility] [address] 11/08/2019 12:00:00 AM EDT eCW1 ([facility]) [facility] [address] [facility] [address] 10/02/2019 12:00:00 AM EDT eCW1 ([facility]) [facility] [address] [place] [address], [place] [address] 09/18/2019 12:00:00 AM EST eCW1 ([facility]) [facility] [address] [place] [address], [place] [address] 08/03/2019 12:00:00 AM EST eCW1 ([facility]) [facility] [address] [place] [address], [place] [address] 07/28/2019 12:00:00 AM EST eCW1 ([facility]) Outpatient Attender: Rafael MADRIGAL-SJBILL 07/10/2019 12 :00:00 AM EST [facility] Outpatient Attender: Fabiola Leon MDA dmitter: Fabiola Leon MDReferrer: Henry White MD ES1-SJ.CVAU 06/30/2019 09:31:00 AM EST - 06/30/2019 04:29:00 PM EST [facility] Patient discharged. Outpatient Attender: Henry White MD SJP.NILO-SJP.NILO 05/27 12:00:00 AM EST - 06/15/2019 04:50:34 PM EST [facility] Immunizations Vaccine Date Status Description Data Source(s) influenza, recombinant, quadrIvalent,injectable, prese rvative free 05/20/2020 01:05:00 PM EDT completed eCW1 ([facility]) influenza, recombinant, quadrIvalent,injectable, prese rvative free 05/20/2020 01:05:00 PM EDT completed eCW1 ([facility]) influenza, recombinant, quadrIvalent,injectable, prese rvative free 05/20/2020 01:05:00 PM EDT completed eCW1 ([facility]) influenza, recombinant, quadrIvalent,injectable, prese rvative free 05/20/2020 01:05:00 PM EDT completed eCW1 ([facility]) influenza, recombinant, quadrIvalent,injectable, prese rvative free 05/20/2020 01:05:00 PM EDT completed eCW1 ([facility]) influenza, recombinant, quadrIvalent,injectable, prese rvative free 05/20/2020 01:05:00 PM EDT completed eCW1 ([facility]) influenza, recombinant, quadrIvalent,injectable, prese rvative free 05/20/2020 01:05:00 PM EDT completed eCW1 ([facility]) Medications Medication Brand Name Start Date Product Form Dose Route Admi nistrative Instructions Pharmacy Instructions Status Indications Reaction Description Data Source(s) 100 mg 07/31/2020 12:00:00 AM EST tablet 90 TAKE ONE TABLET BY MOUTH EVERY DAY TAKE ONE TABLET BY MOUTH EVERY DAY SOLD: 08/03/2020 [facility] 50 mg 07/31/2020 12:00:00 AM EST tablet 90 TAKE ONE TABLET BY MOUTH EVERY DAY TAKE ONE TABLET BY MOUTH EVERY DAY SOLD: 08/03/2020 [facility] 2 ML Sodium Hyaluronate 10 MG/ML Prefilled Syringe [Euflexxa ] Euflexxa 07/11/2020 12:00:00 AM EST active MEDENT ([facility]) Chlorthalidone 50 MG Oral Tablet chlorthalidone (HYGRO TEN) 50 MG tablet chlorthalidone (HYGROTEN) 50 MG tablet 10/16/2019 12:00:00 AM EDT 5 0 mg Oral active Take 1 tablet (50 mg tota l) by mouth daily [facility] Insurance Providers Payer name Policy type / Coverage type Policy ID Covered constitution party ID Covered constitution party's relationship to curran Policy Curran Plan Information MEDICARE [id number] SP [id number] FOR LIFE [id number] SP [id number] MEDICARE [id number] MEDICARE [id number] Latrice [id number] Latrice [id number] MEDICARE [id number] Latrice [id number] A ANSI-Commercial [id number] ANSI-Medicare Part B [id number] ANSI-Medicare Part B [id number] ANSI-Commercial [id number] ANSI-Commercial [id number] ANSI-Medicare Part B [id number] ANSI-Commercial [id number] ANSI-Medicare Part B [id number] ANSI-Medicare Part B [id number] ANSI-Commercial [id number] ANSI-Commercial [id number] ANSI-Medicare Part B [id number] ANSI-Medicare Part B [id number] ANSI-Commercial [id number] ANSI-Medicare Part B [id number] ANSI-Commercial [id number] ANSI-Medicare Part B [id number] ANSI-Commercial [id number] ANSI-Commercial [id number] ANSI-Medicare Part B [id number] ANSI-Medicare Part B [id number] ANSI-Commercial [id number] ANSI-Medicare Part B [id number] ANSI-Commercial [id number] ANSI-Commercial [id number] ANSI-Medicare Part B [id number] ANSI-Medicare Part B [id number] ANSI-Commercial [id number] ANSI-Commercial [id number] ANSI-Medicare Part B [id number] ANSI-Commercial [id number] ANSI-Medicare Part B [id number] ANSI-Commercial [id number] ANSI-Medicare Part B [id number] ANSI-Medicare Part B [id number] ANSI-Commercial [id number] ANSI-Commercial [id number] ANSI-Medicare Part B [id number] ANSI-Commercial [id number] ANSI-Medicare Part B [id number] MEDICARE [id number] SP [id number] A FOR LIFE O [id number] S [id number] MEDICARE C [id number] S [id number] A [place] MED[employer] [employer] [id number] S [id number] MEDICARE - [place] [id number] S [id number] [facility] [id number] S [id number] MEDICARE PI PI PI PI FOR LIFE [id number] SP [id number] MEDICARE [id number] SP [id number] A MEDICARE [id number] Latrice [id number] A MEDICARE [id number] SP [id number] [facility] [id number] SP [id number] Problems, Conditions, and Diagnoses Code Display Name Description Problem Type Effective Dates Data Source(s) R41.3 298394915 Memory impairment Problem 06/24/2020 12:00:0 0 AM EST eCW1 ([facility]) I11.9 [id number] Hypertensive heart disease without heart failure Problem 06/24/2020 12:00:00 AM EST eCW1 ([facility]) E78.5 [id number] Dyslipidemia Problem 06/24/2020 12:00:00 AM EST eCW1 ([facility]) N40.1 Benign prostatic hypertrophy with outflo w obstruction BPH (benign prostatic hypertrophy) with urinary obstruction Problem 2019 12:00:00 AM EDT eCW1 ([facility] [facility]) Z87.898 Elevated PSA History of elevated PSA Problem 04/28/2020 12:00:00 AM EDT eCW1 (Count Includes [facility]) I77.810 Thoracic aortic ectasia Thoracic aortic ectasia Diagno sis 07/09/2020 07:52:52 AM EST [facility] I10 Essential (primary) hypertension Essential (primary) h ypertension Diagnosis 07/09/2020 07:52:52 AM EST [facility] E78.00 Pure hypercholesterolemia, unspecified P ure hypercholesterolemia, unspecified Diagnosis 07/09/2020 07:52:52 AM EST [facility] I25.10 Atherosclerotic heart diseas e of [place] coronary artery without angina pectoris Atherosclerotic heart disease of [place] Diagnosis 07/09/2020 07:52:52 AM EST [facility] 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 Atherosclerotic heart disease of [place] Diagnosis 07/10/2019 08:50:43 AM [facility] Surgeries/Procedures Procedure Description Date Indications Data Source(s) ARTHROCENTESIS ASPIR&/INJECTION MAJOR JT/BURSA 021 12:00:00 AM EST [facility] ([facility]) ARTHROCENTESIS ASPIR&/INJECTION MAJOR JT/BURSA 020 12:00:00 AM EST [facility] ([facility]) ARTHROCENTESIS ASPIR&/INJECTION MAJOR JT/BURSA 020 12:00:00 AM EST [facility] ([facility]) ECG ROUTINE ECG W/LEAST 12 LDS W/I&R POCT AMB EKG Routine 07/09/2020 9:10 AM EST Coronary artery disease involving [place] heart without angina pectoris, unspecified vessel or lesion type 07/09/2020 02:10:00 PM EST Coronary artery disease involving [place] heart without angina pectoris, unspecified vessel or lesion type [facility] Coronary artery disease involving [place] heart without angina pectoris, unspecified vessel or lesion type Immunization: Flublok Quadrivalent (18 years & older) 0.5mL IM (Influenza) 05/20/2020 12:00:00 AM EDT eCW1 (formerly [facility]) ARTHROCENTESIS ASPIR&/INJECTION MAJOR JT/BURSA 020 12:00:00 AM EDT [facility] ([facility]) RADIOLOGIC EXAMINATION KNEE 3 VIEWS 05/09/2020 12:00:0 0 AM EDT [facility] ([facility]) Office Visit, Est Pt., Level 3 PC 12/20/2019 12:00:00 AM EDT eCW1 (Count Includes [facility]) Results ID Date Data Source [id number] 08/30/2020 11:30:00 AM EST [facility] Name Value Range Interpretation Code Description Data Joanna rce(s) Supporting Document(s) SARS coronavirus 2 RNA Not Detected [facility] [place] This lab was ordered by [facility] and reported by [facility]. ID Date Data Source [id number] 07/01/2020 09:09:38 AM EST [facility] Name Value Range Interpretation Code Description Data Joanna rce(s) Supporting Document(s) &PDF [facility] POVQNf3eAlZQGkGx77/SYYrhDCSmi4QdJKlsAAr3DQnqQXGoV2YfyRefDR6NII0VRIqRVuyTVuWCGc6q vci [file] AgICAgICAgICAgICAgICAgICAgICAgICAgICAgICAg ICAgICAgICAgICAgICAgICAgICAgICAgICAgICAgICAgICAgICAgICAgICAgICAgICAgICAgICAgICAg OGLbFMLhFH9UBRYgOTDnXTXsQBGsCKSdFURrESHnVQTqQWUwUNWzTNVgSMZlYYVhKPLeRWKtBJPnVVCp ICAgICAgICAgICAgICAgICAgICAgICAgICAgICAgIC ZhEURqBVPhBJIyBQKvXGBbPY7HBHTzRSHeNVUlWPGiIZQcVAFzNJAvITPlEWWpEQJrQYFdIJImQCHgFZ AgICAgICAgICAgICAgICAgICAgICAgICAgICAgICAgICAgICAgICAgICAgICAgICAgICAgICAgICAgIA 0KICAgICAgICAgICAgICAgICAgICAgICAgICAgICAg ICAgICAgICAgICAgICAgICAgICAgICAgICAgICAgICAgICAgICAgICAgICAgICAgICAgICAgICAgICAg YJEhVBKbDROuJU3HIHDvWSMwHORjTIEbILCpHDSkSHDxDUUrGSShQKPeKLJlMMKpRPTvNXCqWAIhCFPl ICAgICAgICAgICAgICAgICAgICAgICAgICAgICAgIC IuQEIjJNNhJAJkGEWoEVDjLIKzUK7RGVQfBVTfQBUgAOEbRDPjKIKvXUUnLJNqUYJxYPTfUUOgVAGePU AgICAgICAgICAgICAgICAgICAgICAgICAgICAgICAgICAgICAgICAgICAgICAgICAgICAgICAgICAgIC LtZD9HNANgNPBfQYPdNYMaLAAcVWHnXMXvTEDfTFTv ICAgICAgICAgICAgICAgICAgICAgICAgICAgICAgICAgICAgICAgICAgICAgICAgICAgICAgICAgICAg CLPsAVRbFTUiMVGjAT5BHJNoVAKmUEWmZGWpFEAnYOGtDHDaAQWfPUIuHUTxVRLoPLMjPQAvFWBmEZCc ICAgICAgICAgICAgICAgICAgICAgICAgICAgICAgIC KiSCDaYCMcKMMyIMZsJKJePDLlFJMzZD0CHGQeRKMhPKXhUZEeYBIeRRMpXDTkOCZtBRXoXDFnVCSdIC AgICAgICAgICAgICAgICAgICAgICAgICAgICAgICAgICAgICAgICAgICAgICAgICAgICAgICAgICAgIC OfERBfYS2GGMKbSYNxJGAhRXThAZLiCDXtQKAcYKYa ICAgICAgICAgICAgICAgICAgICAgICAgICAgICAgICAgICAgICAgICAgICAgICAgICAgICAgICAgICAg KHExIMLiJPOuUQTqDFFlSG5OLD17qYWaw0J1TIKcEK2rocm/Rs8PPIhlseTpzVZlHZ4BSsChQB7afg6M RtWlAV3gbp6NBGzCEgWsC5G2hEPiSCFiXKNFPzVbT4 2xRWbhDj42NLmpYCXcBwUjRXk2Lp3QDdSsR5hlBFJvYmX9STQiPgZ1BQToDuUzDPrqSP7Jc0EbyEAaXR o+Vw0MES8wp2XyOTllQAUbFZ8ubv2ADIzBVgNvR2R2dVDbL1E5THyvJf4UDDVtDBVvOOodADMVZAcmPT 5ROW2hruD6WH3FgNIpWOTxDPEfwSMfHZy3V73skHZw AUuuKT0DCJM+Olamide+Ch4KXLPrRWEmCZUxNzWjJYGMMjOkF74ogAJyMDXpCEMyPTWpAu9ITKGtG7ViqfKb yJcjnuGpHUAuJFTOML0OBAhsnoOxfSPclVwoHG58gQjwWD7VTo7VGoZcTW2fei3ZcCLtUk6FSNPhOe9B ZWAbLYAvKISuFIR1GQRnExFrVNwmVMQsEJXqMEI2CA OiPPMbXY9CUfItJOPjZRezNrljHEUhTKRnsu9URRMmIGXfRMDtZRTcXZEjAGEvSWqyKQXyUCRjYJrvFU HfVGOlCP6OQxJrEDSrTGR8ZLUpHWTwAWOydd9OTLHcFYNjRkw0PTCfJKRfJFZwOSymABGlBOM5YHB9NZ XzZJJwAG6JBvSmQXDeOFH4KYgzKEOjHEByhm8LKWVd UPKmUdQ1IdNlQFHtUBMtMDjhOKDcDWC2MbPwTKSkCJTkXE0GJrUwTMBjPEN6FGQgYFUeEJApgz2HAUDu DVEuOxejVyJmNORvLXGgXDnhNHPeYXH7HGG6HOSgZFDdSO2XReSnTLWcLHxoFNGzTKZhHNEglm8QCHCx FRDwYEZ9XRBkJJWyHKViAQwzHWUlCVI1ZHFnCQGcQE QaCK1YGfFzLSIoBQi4ZcwfFOVhSFDhwg8WURGnKGAiJDIoZARrGFAjWSStJWiwLHNrNFH5PiT7CMLuIQ AtUN9JTwQwWDXcCHc6FlimZKQaNJZhtu5MAGDhYQHdIDJlCaPoPNWfVEQrIYe8lhXszTNcVAp0XW4HG1 HgkiEsSaVKTi5Wl767SJVfVPFgKf1CV9qnSz1oXPIy XSTCWl8FFZn7KqOvHim9TpAmMjT8DjTqDLs4TohcJwZmLYGfMocePhE+IDwyYmRjOTYyZjFiNTQyNGY4 OAruABHkQGPbIiV0CEX1IW0lHFWTGo5+MUvnjLSemDpjISKHEwMwGBS2TWwrQLUCUa6Q Procedure Social History Code Duration Value Status Description Data Source(s ) Alcohol intake 07/01/2020 12:00:00 AM EST Yes completed [facility] Cigarettes smoked current (pack per day) - Reported 12/07/20 20 12:00:00 AM EST UNK completed [facility] Smoking 07/01/2020 12:00:00 AM EST Former smoker completed Former smoker [facility] Smoking 06/24/2020 12:00:00 AM EST Former Smoker completed Former Smoker eCW1 (Count Includes [facility]) Smoking 06/24/2020 12:00:00 AM EST Former Smoker completed Former Smoker eCW1 (Count Includes [facility]) Smoking 06/24/2020 12:00:00 AM EST Former Smoker completed Former Smoker eCW1 (Count Includes [facility]) Smoking 06/24/2020 12:00:00 AM EST Former Smoker completed Former Smoker eCW1 (Count Includes [facility]) Smoking 06/24/2020 12:00:00 AM EST Former Smoker completed Former Smoker eCW1 (Count Includes [facility]) Smoking 04/29/2020 12:00:00 AM EDT Former Smoker completed Former Smoker eCW1 (Count Includes [facility]) Smoking 04/29/2020 12:00:00 AM EDT Former Smoker completed Former Smoker eCW1 (Count Includes [facility]) Smoking 04/29/2020 12:00:00 AM EDT Former Smoker completed Former Smoker eCW1 (Count Includes [facility]) Smoking 04/29/2020 12:00:00 AM EDT Former Smoker completed Former Smoker eCW1 (Count Includes [facility]) Smoking 12/26/2019 12:00:00 AM EDT Former Smoker completed Former Smoker eCW1 (Count Includes [facility]) Smoking 12/26/2019 12:00:00 AM EDT Former Smoker completed Former Smoker eCW1 (Count Includes [facility]) Smoking 12/26/2019 12:00:00 AM EDT Former Smoker completed Former Smoker eCW1 (Count Includes [facility]) Smoking 12/26/2019 12:00:00 AM EDT Former Smoker completed Former Smoker eCW1 (Count Includes [facility]) Smoking 12/26/2019 12:00:00 AM EDT Former Smoker completed Former Smoker eCW1 (Count Includes [facility]) Vital Signs ID Date Data Source UNK Name Value Range Interpretation Code Description Data Source(s) Body mass index (BMI) [Ratio] 30.3 kg/m2 30.3 k g/m2 [facility] ([facility]) Body weight 196.50 [lb_av] 196.50 [lb_av] MEDEN T ([facility]) Body height 67.5 [in_i] 67.5 [in_i] [facility] ([facility]) 5'7.50" Body temperature 97.1 [degF] 97.1 [degF] [facility] ([facility]) Body mass index (BMI) [Ratio] 30.11 kg/m2 30.11 kg/m2 [facility] Body weight 89.812 kg 89.812 kg [facility] Body height 172.7 cm 172.7 cm [facility] Respiratory rate 16 /min 16 /min [facility] Heart rate 60 /min 60 /min [facility] Diastolic blood pressure 86 mm[Hg] 86 mm[Hg] [facility] Systolic blood pressure 146 mm[Hg] 146 mm[Hg] [facility] Diastolic blood pressure 80 mm[Hg] 80 mm[Hg] eCW1 (Count Includes [facility]) Systolic blood pressure 154 mm[Hg] 154 mm[Hg] e CW1 (Count Includes [facility]) Body temperature 97.9 [degF] 97.9 [degF] eCW1 ( Count Includes [facility]) Respiratory rate 18 /min 18 /min eCW1 ([facility]) Heart rate 57 /min 57 /min eCW1 ([facility]) Body mass index (BMI) [Ratio] 29.07 kg/m2 29.07 kg/m2 eCW1 (Count Includes [facility]) Body height 68.5 [in_i] 68.5 [in_i] eCW1 ([facility]) Body weight [lb_av] eCW1 ([facility]) Diastolic blood pressure mm[Hg] eCW1 (Count Includes [facility]) Systolic blood pressure 140 mm[Hg] 140 mm[Hg] e CW1 (Count Includes [facility]) Body temperature 97.5 [degF] 97.5 [degF] eCW1 ( Count Includes [facility]) Respiratory rate 17 /min 17 /min eCW1 ([facility]) Heart rate 61 /min 61 /min eCW1 ([facility]) Body mass index (BMI) [Ratio] 29.37 kg/m2 29.37 kg/m2 eCW1 (Count Includes [facility]) Body height 68.5 [in_i] 68.5 [in_i] eCW1 ([facility]) Body weight 196 [lb_av] 196 [lb_av] eCW1 ([facility]) Diastolic blood pressure 80 mm[Hg] 80 mm[Hg] eCW1 (Count Includes [facility]) Systolic blood pressure 142 mm[Hg] 142 mm[Hg] e CW1 (Count Includes [facility]) Body mass index (BMI) [Ratio] 29.66 kg/m2 29.66 kg/m2 eCW1 (Count Includes [facility]) Body height 68.5 [in_i] 68.5 [in_i] eCW1 ([facility]) Body weight 198 [lb_av] 198 [lb_av] eCW1 ([facility]) Diastolic blood pressure 80 mm[Hg] 80 mm[Hg] eCW1 (Count Includes [facility]) Systolic blood pressure 142 mm[Hg] 142 mm[Hg] e CW1 (Count Includes [facility]) Body mass index (BMI) [Ratio] 30.65 kg/m2 30.65 kg/m2 eCW1 (Count Includes [facility]) Body height 68.5 [in_us] 68.5 [in_us] eCW1 ([facility]) Body weight Measured 204.6 [lb_av] 204.6 [lb_av ] eCW1 (Count Includes [facility]) Patient Treatment Plan of Care Planned Activity Planned Date Details Description Data Source (s) Chlorthalidone 50 MG Oral Tablet 10/16/2019 12:00:00 AM [facility]
--- NOTE | 2020-09-04 09:34 | ROOR ---
Patient Name: Donavan Galeana Procedure Date: 09/04/2020 9:10 AM Date of : 1945 Age: 74 Room: [facility] Gender: Male Note Status: Finalized Procedure: Total Colonoscopy to Cecum + Hot Snare Polypectomy + Hemoclip Indications: Screening for colorectal malignant neoplasm Providers: Alejandro Marin MD Referring MD: Abby CONLEY DO Requesting Provider: Medicines: Monitored Anesthesia Care Complications: No immediate complications. Procedure: Pre-Anesthesia Assessment: - The heart rate, respiratory rate, oxygen saturations, blood pressure, adequacy of pulmonary ventilation, and response to care were monitored throughout the procedure. The Colonoscope was introduced through the anus and advanced to the cecum, identified by appendiceal orifice and ileocecal valve. The colonoscopy was performed without difficulty. The patient tolerated the procedure well. The quality of the bowel preparation was excellent. Findings: The perianal and digital rectal examinations were normal. Non-bleeding internal hemorrhoids were found during retroflexion. The hemorrhoids were small and Grade I (internal hemorrhoids that do not prolapse). Scattered small-mouthed diverticula were found in the recto-sigmoid colon, sigmoid colon and descending colon. A large polyp was found at 35 cm proximal to the anus. The polyp was pedunculated. The polyp was removed with a hot snare. Resection and retrieval were complete. To prevent bleeding after the polypectomy, one hemostatic clip was successfully placed (MR conditional). There was no bleeding at the end of the procedure. The exam was otherwise without abnormality on direct and retroflexion views. Impression: - Non-bleeding internal hemorrhoids. - Diverticulosis in the recto-sigmoid colon, in the sigmoid colon and in the descending colon. - One large polyp at 35 cm proximal to the anus, removed with a hot snare. Resected and retrieved. Clip (MR conditional) was placed. - The examination was otherwise normal on direct and retroflexion views. - The exam was otherwise normal to the cecum. Recommendation: - Patient has a contact number available for emergencies. The signs and symptoms of potential delayed complications were discussed with the patient. Return to normal activities tomorrow. Written discharge instructions were provided to the patient. - High fiber diet. - Discharge patient to home. - Continue present medications. - Await pathology results. - Telephone GI clinic for pathology results in 1 week. - Return to referring physician. - Repeat colonoscopy in 3 years for surveillance based on pathology results. - The findings and recommendations were discussed with the patient. Procedure Code(s): --- Professional --- 59222, Colonoscopy, flexible; with removal of tumor(s), polyp(s), or other lesion(s) by snare technique Diagnosis Code(s): --- Professional --- Z12.11, Encounter for screening for malignant neoplasm of colon K64.0, First degree hemorrhoids K63.5, Polyp of colon K57.30, Diverticulosis of large intestine without perforation or abscess without bleeding CPT copyright 2019 [employer]. All rights reserved. The codes documented in this report are preliminary and upon gluer and wedger review may be revised to meet current compliance requirements. Alejandro Marin MD Alejandro Marin MD 09/04/2020 9:34:35 AM Electronically signed by Alejandro Marin MD Number of Addenda: 0 Note Initiated On: 09/04/2020 9:10 AM Estimated Blood Loss: Estimated blood loss: none.
[2020-09-04 09:55] VITALS: BP 163/85
== END 2020-09-04 10:04 | disposition home or self-care (01) ==
LOC: M OPP 07:49
PROVIDERS: ATTEND Internal Medicine Gastroenterology
DX: Z12.11 Encounter for screening for malignant neoplasm of colon (principal); D12.6 Benign neoplasm of colon, unspecified; K64.0 First degree hemorrhoids; K57.30 Diverticulosis of large intestine without perforation or abscess without bleeding; I10 Essential (primary) hypertension; E78.5 Hyperlipidemia, unspecified; J44.9 Chronic obstructive pulmonary disease, unspecified; Z95.5 Presence of coronary angioplasty implant and graft; Z79.82 Long term (current) use of aspirin; Z79.899 Other long term (current) drug therapy

== ENCOUNTER → 2020-12-10 | Outpatient (CLI) | payer MEDICARE, OTHER ==
[~2020-12-10] MED LIST changes: -LIDOCAINE 2% 100MG/5ML SDV (FOR ANES.) As Ordered ONE; -NS 1,000 ML IV ONE; -propofoL 200 MG/20 ML VIAL As Ordered ONE
--- NOTE | 2020-12-10 11:47 | REP ---
INDICATION: M25.572 ACUTE LEFT ANKLE PAIN. COMPARISON: 01/26/2015 TECHNIQUE: Four views FINDINGS: There is stable appearing degenerative changes. There is no evidence of an acute fracture. IMPRESSION: Stable appearing chronic changes. <Electronically signed by Chivo Dudley > 12/10/20 1148
--- NOTE | 2020-12-10 11:48 | REP ---
INDICATION: M25.572 ACUTE LEFT ANKLE PAIN. COMPARISON: None. TECHNIQUE: Four views FINDINGS: No acute fracture or destructive osseous lesion. The mortise is intact. IMPRESSION: No evidence of an acute fracture or significant change compared to the prior exam. <Electronically signed by Chivo Dudley > 12/10/20 1140
== END ==
LOC: M CLY 11:06
PROVIDERS: ATTEND Family Medicine
DX: M25.572 Pain in left ankle and joints of left foot (principal)
CPT/HCPCS: 73610; 73630; G0463

== ENCOUNTER → 2021-04-23 | Outpatient (REF) | payer MEDICARE, OTHER ==
[2021-04-24 23:07] LABS: PSA TOTAL 3.3 ng/mL (0.0-4.0)
== END ==
LOC: M SFHCCLAY 07:36
PROVIDERS: ATTEND Urology
DX: Z87.898 Personal history of other specified conditions (principal)

== ENCOUNTER → 2021-06-24 | Outpatient (CLI) | payer MEDICARE, OTHER ==
[~2021-06-24] MED LIST changes: +LOSA100T45; -LOSA100T50
[2021-06-24 11:42] LABS: HEMATOCRIT 42.1 % (42.0-52.0); HEMOGLOBIN 14.9 g/dl (13.5-17.5); MEAN CORPUSCULAR HEMOGLOBIN 30.3 pg (27.0-33.0); MEAN CORPUSCULAR HGB CONC 35.4 g/dl (32.0-36.5); MEAN CORPUSCULAR VOLUME 85.7 fl (80.0-96.0); PLATELET COUNT, AUTOMATED 313 10^3/uL (150-450); RED BLOOD COUNT 4.91 10^6/uL (4.30-6.10)
[2021-06-24 11:53] LABS: INR 0.82; PROTHROMBIN TIME 11.7 SECONDS (12.7-14.5)
[2021-06-24 12:12] LABS: ERYTHROCYTE SEDIMENTATION RATE 5 mm/hr (0-20)
[2021-06-24 12:25] LABS: ALBUMIN 3.8 GM/DL (3.2-5.2); ALT/SGPT 33 U/L (12-78); BILIRUBIN,TOTAL 0.9 MG/DL (0.2-1.0); BLOOD UREA NITROGEN 12 MG/DL (7-18); CALCIUM LEVEL 9.8 MG/DL (8.8-10.2); CARBON DIOXIDE LEVEL 32 MEQ/L (21-32); CHLORIDE LEVEL 96 MEQ/L (98-107); CREATININE FOR GFR 0.74 MG/DL (0.70-1.30); GLOMERULAR FILTRATION RATE > 60.0 (>42); GLUCOSE, FASTING 92 MG/DL (70-100); POTASSIUM SERUM 3.6 MEQ/L (3.5-5.1); SODIUM LEVEL 136 MEQ/L (136-145); TOTAL PROTEIN 6.9 GM/DL (6.4-8.2)
== END ==
LOC: M CLY 08:45
PROVIDERS: ATTEND Orthopaedic Surgery
DX: Z01.818 Encounter for other preprocedural examination (principal); M17.11 Unilateral primary osteoarthritis, right knee

== ENCOUNTER → 2021-09-03 | Outpatient (CLI) | payer MEDICARE, OTHER ==
[2021-09-03 13:04] LABS: BASO % 0.3 % (0.0-1.0); EOS % 0.3 % (0.0-3.0); HEMOGLOBIN 10.3 g/dl (13.5-17.5); LYMPH # 1.7 10^3/uL (1.5-5.0); LYMPH % 19.4 % (24.0-44.0); MEAN CORPUSCULAR HEMOGLOBIN 26.9 pg (27.0-33.0); MEAN CORPUSCULAR HGB CONC 31.2 g/dl (32.0-36.5); MEAN CORPUSCULAR VOLUME 86.2 fl (80.0-96.0); MONO # 0.9 10^3/uL (0.0-0.8); MONO % 9.9 % (2.0-8.0); NEUTROPHILS # 6.1 10^3/uL (1.5-8.5); NEUTROPHILS % 69.5 % (36.0-66.0); PLATELET COUNT, AUTOMATED 607 10^3/uL (150-450); RED BLOOD COUNT 3.83 10^6/uL (4.30-6.10); WHITE BLOOD COUNT 8.8 10^3/uL (4.0-10.0)
[2021-09-03 13:41] LABS: ERYTHROCYTE SEDIMENTATION RATE 67 mm/hr (0-20)
== END ==
LOC: M PLALAB 10:40
PROVIDERS: ATTEND Orthopaedic Surgery
DX: Z47.1 Aftercare following joint replacement surgery (principal); Z96.651 Presence of right artificial knee joint

== ENCOUNTER → 2021-09-04 | Outpatient (CLI) | payer MEDICARE, OTHER ==
[2021-09-04 18:08] LABS: SOURCE, BODY FLUID GLUCOSE RT KNEE
[2021-09-04 18:22] LABS: CRYSTALS, BODY FLUID NONE SEEN (NONE SEEN); SOURCE, BODY FLUID CRYSTALS RT KNEE
[2021-09-05 09:45] LABS: BODY FLUID RHEUMATOID SCREEN NEGATIVE (NEGATIVE)
[2021-09-05 09:46] LABS: MUCIN CLOT TEST 2+ (4+)
== END ==
LOC: M RAD 09:31
PROVIDERS: ATTEND Orthopaedic Surgery
DX: M25.461 Effusion, right knee (principal); M79.89 Other specified soft tissue disorders

== ENCOUNTER → 2021-09-08 | Outpatient (REF) | payer MEDICARE, OTHER ==
[2021-09-08 12:01] LABS: INR 0.98; PROTHROMBIN TIME 13.4 SECONDS (12.7-14.5)
[2021-09-08 12:02] LABS: PARTIAL THROMBOPLASTIN TIME 37.6 SECONDS (25.9-37.0)
[2021-09-08 12:18] LABS: COLLAGEN EPINEPHRINE 146 SECONDS (74-162)
== END ==
LOC: M LABDRAWC 11:02
PROVIDERS: ATTEND Orthopaedic Surgery
DX: Z51.81 Encounter for therapeutic drug level monitoring (principal); Z79.82 Long term (current) use of aspirin

== ENCOUNTER → 2021-12-10 | Outpatient (REF) | payer MEDICARE, OTHER ==
[2021-12-10 16:12] LABS: HEMATOCRIT 40.5 % (42.0-52.0); MEAN CORPUSCULAR HEMOGLOBIN 24.9 pg (27.0-33.0); MEAN CORPUSCULAR HGB CONC 32.1 g/dl (32.0-36.5); MEAN CORPUSCULAR VOLUME 77.4 fl (80.0-96.0); PLATELET COUNT, AUTOMATED 328 10^3/uL (150-450); RED BLOOD COUNT 5.23 10^6/uL (4.30-6.10); WHITE BLOOD COUNT 6.7 10^3/uL (4.0-10.0)
[2021-12-10 16:22] LABS: ALBUMIN 3.5 GM/DL (3.2-5.2); ALT/SGPT 15 U/L (12-78); BILIRUBIN,TOTAL 0.6 MG/DL (0.2-1.0); BLOOD UREA NITROGEN 17 MG/DL (7-18); CALCIUM LEVEL 9.7 MG/DL (8.8-10.2); CARBON DIOXIDE LEVEL 32 MEQ/L (21-32); CHLORIDE LEVEL 102 MEQ/L (98-107); CHOLESTEROL LEVEL 140 MG/DL (<200); CHOLESTEROL RISK RATIO 2.153 (<5); CREATININE FOR GFR 0.83 MG/DL (0.70-1.30); GLOMERULAR FILTRATION RATE > 60.0 (>42); GLUCOSE, FASTING 99 MG/DL (70-100); HDL CHOLESTEROL 65 MG/DL (>40); LDL CHOLESTEROL 51 MG/DL (<100); NON-HDL-C 75 MG/DL; POTASSIUM SERUM 3.7 MEQ/L (3.5-5.1); SODIUM LEVEL 141 MEQ/L (136-145); TOTAL PROTEIN 6.8 GM/DL (6.4-8.2); TRIGLYCERIDES LEVEL 120 MG/DL (<150)
[2021-12-12 09:06] LABS: IRON (FE) 45 UG/DL (65-175); PERCENT SATURATION 11.1 % (19.7-50.0); TOTAL IRON BINDING CAPACITY 406 UG/DL (250-450)
[2021-12-15 13:19] LABS: VITAMIN B12 LEVEL 300 PG/ML (247-911)
== END ==
LOC: M SFHCCLAY 09:57
PROVIDERS: ATTEND Nurse Practitioner Family
DX: E78.2 Mixed hyperlipidemia (principal); I10 Essential (primary) hypertension; D64.9 Anemia, unspecified

== ENCOUNTER → 2022-03-03 | Outpatient (CLI) | payer MEDICARE, OTHER ==
[~2022-03-03] MED LIST changes: +GASTROGRAFIN SOLUTION 30ML (Q9963) As Ordered ONE; +ISOVUE-370 76% 100ML VIAL As Ordered ONE
[2022-03-03 12:18] LABS: BLOOD UREA NITROGEN 13 MG/DL (7-18); CALCIUM LEVEL 9.4 MG/DL (8.8-10.2); CARBON DIOXIDE LEVEL 34 MEQ/L (21-32); CHLORIDE LEVEL 102 MEQ/L (98-107); CREATININE FOR GFR 0.85 MG/DL (0.70-1.30); GLOMERULAR FILTRATION RATE > 60.0 (>42); GLUCOSE, FASTING 101 MG/DL (70-100); POTASSIUM SERUM 4.2 MEQ/L (3.5-5.1); SODIUM LEVEL 139 MEQ/L (136-145)
== END ==
LOC: M RAD 10:51
PROVIDERS: ATTEND Nurse Practitioner Family
DX: K57.32 Diverticulitis of large intestine without perforation or abscess without bleeding (principal); R10.30 Lower abdominal pain, unspecified

== ENCOUNTER → 2022-03-19 | Outpatient (REF) | payer MEDICARE, OTHER ==
[~2022-03-19] MED LIST changes: -GASTROGRAFIN SOLUTION 30ML (Q9963) As Ordered ONE; -ISOVUE-370 76% 100ML VIAL As Ordered ONE
== END ==
LOC: M SFHCCLAY 11:16
PROVIDERS: ATTEND Nurse Practitioner Family
DX: K57.92 Diverticulitis of intestine, part unspecified, without perforation or abscess without bleeding (principal)

== ENCOUNTER → 2022-03-31 | Outpatient (CLI) | payer MEDICARE, OTHER ==
[2022-03-31 14:32] LABS: BASO % 0.2 % (0.0-1.0); EOS # 0.1 10^3/uL (0.0-0.5); EOS % 0.6 % (0.0-3.0); HEMOGLOBIN 14.3 g/dl (13.5-17.5); LYMPH # 2.1 10^3/uL (1.5-5.0); LYMPH % 24.6 % (24.0-44.0); MEAN CORPUSCULAR HEMOGLOBIN 29.8 pg (27.0-33.0); MEAN CORPUSCULAR VOLUME 87.5 fl (80.0-96.0); MONO # 0.9 10^3/uL (0.0-0.8); MONO % 10.8 % (2.0-8.0); NEUTROPHILS # 5.4 10^3/uL (1.5-8.5); NEUTROPHILS % 63.6 % (36.0-66.0); PLATELET COUNT, AUTOMATED 305 10^3/uL (150-450); WHITE BLOOD COUNT 8.4 10^3/uL (4.0-10.0)
[2022-03-31 15:48] LABS: ERYTHROCYTE SEDIMENTATION RATE 21 mm/hr (0-20)
== END ==
LOC: M PLALAB 11:44
PROVIDERS: ATTEND Physical Medicine & Rehabilitation
DX: S80.01XA Contusion of right knee, initial encounter (principal)

== ENCOUNTER → 2022-05-04 | Outpatient (CLI) | payer MEDICARE, OTHER | LOC: M RAD 08:19 | PROVIDERS: ATTEND Physician Assistant Surgical | DX: S80.01XA Contusion of right knee, initial encounter (principal); X58.XXXA Exposure to other specified factors, initial encounter; Y92.9 Unspecified place or not applicable; Y93.9 Activity, unspecified; Y99.9 Unspecified external cause status; Z96.651 Presence of right artificial knee joint | CPT/HCPCS: 78315; A9503 ==

== ENCOUNTER → 2022-05-13 | Outpatient (REF) | payer MEDICARE, OTHER ==
[2022-05-13 14:34] LABS: SOURCE, BODY FLUID RT KNEE
[2022-05-13 14:35] LABS: SYNOVIAL FLUID COLOR AMBER (COLORLESS)
[2022-05-13 15:05] LABS: CRYSTALS, BODY FLUID NONE SEEN (NONE SEEN); SOURCE, BODY FLUID CRYSTALS RT KNEE
[2022-05-13 15:06] LABS: SOURCE, BODY FLUID GLUCOSE RT KNEE
== END ==
LOC: M LAB REF 13:05
PROVIDERS: ATTEND Orthopaedic Surgery
DX: M25.461 Effusion, right knee (principal); Z96.651 Presence of right artificial knee joint

== ENCOUNTER → 2022-05-15 | Outpatient (REF) | payer MEDICARE, OTHER | LOC: M SFHCCLAY 07:21 | PROVIDERS: ATTEND Urology | DX: Z87.898 Personal history of other specified conditions (principal); R97.20 Elevated prostate specific antigen [PSA] ==

== ENCOUNTER → 2022-05-20 | Outpatient (CLI) | payer MEDICARE, OTHER ==
[2022-05-20 16:20] LABS: BASO % 0.4 % (0.0-1.0); EOS # 0.1 10^3/uL (0.0-0.5); EOS % 0.9 % (0.0-3.0); HEMATOCRIT 44.1 % (42.0-52.0); HEMOGLOBIN 14.8 g/dl (13.5-17.5); LYMPH % 27.2 % (24.0-44.0); MEAN CORPUSCULAR HEMOGLOBIN 29.7 pg (27.0-33.0); MEAN CORPUSCULAR HGB CONC 33.6 g/dl (32.0-36.5); MEAN CORPUSCULAR VOLUME 88.4 fl (80.0-96.0); MONO # 0.6 10^3/uL (0.0-0.8); NEUTROPHILS # 4.8 10^3/uL (1.5-8.5); NEUTROPHILS % 63.2 % (36.0-66.0); PLATELET COUNT, AUTOMATED 296 10^3/uL (150-450); RED BLOOD COUNT 4.99 10^6/uL (4.30-6.10); WHITE BLOOD COUNT 7.5 10^3/uL (4.0-10.0)
[2022-05-20 17:08] LABS: ERYTHROCYTE SEDIMENTATION RATE 5 mm/hr (0-20)
[2022-05-20 17:21] LABS: ALBUMIN 3.9 GM/DL (3.2-5.2); ALT/SGPT 29 U/L (12-78); BILIRUBIN,TOTAL 0.9 MG/DL (0.2-1.0); BLOOD UREA NITROGEN 13 MG/DL (7-18); CALCIUM LEVEL 9.4 MG/DL (8.8-10.2); CARBON DIOXIDE LEVEL 31 MEQ/L (21-32); CHLORIDE LEVEL 100 MEQ/L (98-107); CREATININE FOR GFR 0.84 MG/DL (0.70-1.30); GLOMERULAR FILTRATION RATE > 60.0 (>42); GLUCOSE, FASTING 103 MG/DL (70-100); POTASSIUM SERUM 3.8 MEQ/L (3.5-5.1); RHEUMATOID FACTOR QUANT < 10.0 IU/ML (<15.0); SODIUM LEVEL 138 MEQ/L (136-145); TOTAL PROTEIN 6.9 GM/DL (6.4-8.2); URIC ACID 5.1 MG/DL (3.5-7.2)
[2022-05-22 23:07] LABS: ANTINUCLEAR ANTIBODIES DIRECT Negative (Negative); CYCLIC CITRULLINATED PEPTIDE 3 units (0-19)
== END ==
LOC: M PLALAB 11:53
PROVIDERS: ATTEND Orthopaedic Surgery
DX: T84.032A Mechanical loosening of internal right knee prosthetic joint, initial encounter (principal); Z96.651 Presence of right artificial knee joint; M25.461 Effusion, right knee; Y83.1 Surgical operation with implant of artificial internal device as the cause of abnormal reaction of the patient, or of later complication, without mention of misadventure at the time of the procedure

== ENCOUNTER → 2022-05-20 | Outpatient (CLI) | payer MEDICARE, OTHER | LOC: M PLAIMG 10:08 | PROVIDERS: ATTEND Orthopaedic Surgery | DX: T84.032A Mechanical loosening of internal right knee prosthetic joint, initial encounter (principal); Z96.651 Presence of right artificial knee joint; M25.461 Effusion, right knee; Y83.1 Surgical operation with implant of artificial internal device as the cause of abnormal reaction of the patient, or of later complication, without mention of misadventure at the time of the procedure ==

== ENCOUNTER → 2022-06-23 | Outpatient (CLI) | payer MEDICARE, OTHER | LOC: M LAB 10:02 | PROVIDERS: ATTEND Nurse Practitioner Family | DX: R06.02 Shortness of breath (principal) ==

== ENCOUNTER → 2022-11-12 | Outpatient (REF) | payer MEDICARE, OTHER ==
[2022-11-12 12:35] LABS: BASO % 0.5 % (0.0-1.0); EOS # 0.1 10^3/uL (0.0-0.5); EOS % 1.1 % (0.0-3.0); HEMATOCRIT 43.8 % (42.0-52.0); LYMPH # 2.8 10^3/uL (1.5-5.0); LYMPH % 43.1 % (24.0-44.0); MEAN CORPUSCULAR HEMOGLOBIN 30.5 pg (27.0-33.0); MEAN CORPUSCULAR HGB CONC 34.2 g/dl (32.0-36.5); MEAN CORPUSCULAR VOLUME 89.2 fl (80.0-96.0); MONO # 0.6 10^3/uL (0.0-0.8); MONO % 9.8 % (2.0-8.0); NEUTROPHILS % 45.3 % (36.0-66.0); PLATELET COUNT, AUTOMATED 287 10^3/uL (150-450); RED BLOOD COUNT 4.91 10^6/uL (4.30-6.10); WHITE BLOOD COUNT 6.6 10^3/uL (4.0-10.0)
[2022-11-12 13:03] LABS: ALBUMIN 3.5 G/DL (3.2-5.2); ALKALINE PHOSPHATASE 94 U/L (46-116); ALT/SGPT 18 U/L (7.0-40); AST/SGOT 19 U/L (<34); BILIRUBIN,TOTAL 0.9 MG/DL (0.3-1.2); BLOOD UREA NITROGEN 19 MG/DL (9-23); CALCIUM LEVEL 9.2 MG/DL (8.3-10.6); CARBON DIOXIDE LEVEL 30 MMOL/L (20-31); CHLORIDE LEVEL 102 MMOL/L (98-107); CREATININE FOR GFR 0.76 MG/DL (0.70-1.30); GLOMERULAR FILTRATION RATE > 60.0 (>42); GLUCOSE, FASTING 104 MG/DL (74-106); POTASSIUM SERUM 3.5 MMOL/L (3.5-5.1); SODIUM LEVEL 139 MMOL/L (136-145); TOTAL PROTEIN 6.4 G/DL (5.7-8.2)
[2022-11-12 13:06] LABS: THYROID STIMULATING HORMONE 2.045 uIU/ML (0.55-4.78)
== END ==
LOC: M LABDRAWC 11:39
PROVIDERS: ATTEND Nurse Practitioner Family
DX: I42.9 Cardiomyopathy, unspecified (principal); R06.02 Shortness of breath; I25.10 Atherosclerotic heart disease of native coronary artery without angina pectoris; R53.83 Other fatigue

== ENCOUNTER → 2022-11-18 | Outpatient (REF) | payer MEDICARE, OTHER ==
[2022-11-19 23:07] LABS: PSA % FREE 9.3 % (.); PSA FREE 0.64 ng/mL; PSA TOTAL 6.9 ng/mL (0.0-4.0)
== END ==
LOC: M SFHCCLAY 07:12
PROVIDERS: ATTEND Urology
DX: R97.20 Elevated prostate specific antigen [PSA] (principal)

== ENCOUNTER 2022-11-28 09:58 | Emergency (ER) | payer MEDICARE, OTHER ==
[~2022-11-28] VITALS: Ht 172.7 cm; Wt 88.1 kg
[~2022-11-28 09:58] MED LIST changes: -LOSA100T45; +LOSA100T46
[2022-11-28] MEDS ORDERED: KETOROLAC 30 MG/ML 1ML VIAL IV ONE (12:35)
[2022-11-28] MEDS ORDERED: ISOVUE-370 76% 100ML VIAL As Ordered ONE (12:37)
[2022-11-28 12:39] LABS: BASO % 0.5 % (0.0-1.0); EOS # 0.1 10^3/uL (0.0-0.5); EOS % 1.2 % (0.0-3.0); HEMATOCRIT 42.7 % (42.0-52.0); HEMOGLOBIN 14.9 g/dl (13.5-17.5); LYMPH # 1.9 10^3/uL (1.5-5.0); LYMPH % 22.6 % (24.0-44.0); MEAN CORPUSCULAR HEMOGLOBIN 30.6 pg (27.0-33.0); MEAN CORPUSCULAR HGB CONC 34.9 g/dl (32.0-36.5); MEAN CORPUSCULAR VOLUME 87.7 fl (80.0-96.0); MONO # 0.8 10^3/uL (0.0-0.8); MONO % 8.8 % (2.0-8.0); NEUTROPHILS # 5.7 10^3/uL (1.5-8.5); NEUTROPHILS % 66.4 % (36.0-66.0); PLATELET COUNT, AUTOMATED 269 10^3/uL (150-450); RED BLOOD COUNT 4.87 10^6/uL (4.30-6.10); WHITE BLOOD COUNT 8.5 10^3/uL (4.0-10.0)
[2022-11-28 13:00] LABS: ALBUMIN 3.5 G/DL (3.2-5.2); BILIRUBIN,DIRECT 0.4 MG/DL (<0.4); BILIRUBIN,TOTAL 1.1 MG/DL (0.3-1.2); TOTAL PROTEIN 6.2 G/DL (5.7-8.2)
[2022-11-28 14:10] VITALS: BP 149/76
== END 2022-11-28 14:21 | disposition home or self-care (01) ==
LOC: M ED 09:58
DX: N40.0 Benign prostatic hyperplasia without lower urinary tract symptoms (principal); I25.10 Atherosclerotic heart disease of native coronary artery without angina pectoris; I10 Essential (primary) hypertension; Z87.442 Personal history of urinary calculi; Z87.891 Personal history of nicotine dependence; Z82.49 Family history of ischemic heart disease and other diseases of the circulatory system
CPT/HCPCS: 74177; 80047; 80076; 81001; 83690; 85025; 96374; 99284; J1885; Q9967

== ENCOUNTER → 2022-12-28 | Outpatient (REF) | payer MEDICARE, OTHER ==
[2022-12-28 11:30] LABS: BLOOD UREA NITROGEN 15 MG/DL (9-23); CALCIUM LEVEL 8.6 MG/DL (8.3-10.6); CARBON DIOXIDE LEVEL 34 MMOL/L (20-31); CHLORIDE LEVEL 100 MMOL/L (98-107); CREATININE FOR GFR 0.84 MG/DL (0.70-1.30); GLOMERULAR FILTRATION RATE > 60.0 (>42); GLUCOSE, FASTING 139 MG/DL (74-106); POTASSIUM SERUM 3.2 MMOL/L (3.5-5.1); SODIUM LEVEL 140 MMOL/L (136-145)
== END ==
LOC: M SFHCCLAY 07:25
PROVIDERS: ATTEND Nurse Practitioner Family
DX: E87.6 Hypokalemia (principal)

== ENCOUNTER → 2023-01-25 | Outpatient (REF) | payer MEDICARE, OTHER | LOC: M SFHCDERM 17:40 | PROVIDERS: ATTEND Physician Assistant | DX: D22.61 Melanocytic nevi of right upper limb, including shoulder (principal) ==

== ENCOUNTER → 2023-02-03 | Outpatient (CLI) | payer MEDICARE, OTHER | LOC: M SLEEP 20:00 | PROVIDERS: ATTEND Nurse Practitioner Family | DX: R06.83 Snoring (principal) ==

== ENCOUNTER → 2023-05-17 | Outpatient (REF) | payer MEDICARE, OTHER ==
[2023-05-18 05:03] LABS: ALBUMIN 3.5 G/DL (3.2-5.2); ALKALINE PHOSPHATASE 102 U/L (46-116); ALT/SGPT 19 U/L (7.0-40); AST/SGOT 22 U/L (<34); BILIRUBIN,TOTAL 0.8 MG/DL (0.3-1.2); BLOOD UREA NITROGEN 13 MG/DL (9-23); CALCIUM LEVEL 9.7 MG/DL (8.3-10.6); CARBON DIOXIDE LEVEL 31 MMOL/L (20-31); CHLORIDE LEVEL 100 MMOL/L (98-107); CHOLESTEROL LEVEL 143 MG/DL (<200); CHOLESTEROL RISK RATIO 2.43 (<5); CREATININE FOR GFR 0.75 MG/DL (0.70-1.30); GLOMERULAR FILTRATION RATE > 60.0 (>42); GLUCOSE, FASTING 85 MG/DL (74-106); HDL CHOLESTEROL 58.8 MG/DL (>40); LDL CHOLESTEROL 43.8 MG/DL (<100); NON-HDL-C 84.2 MG/DL; POTASSIUM SERUM 3.6 MMOL/L (3.5-5.1); SODIUM LEVEL 140 MMOL/L (136-145); TOTAL PROTEIN 6.4 G/DL (5.7-8.2); TRIGLYCERIDES LEVEL 202 MG/DL (<150)
[2023-05-18 23:08] LABS: PSA FREE 0.52 ng/mL; PSA TOTAL 5.2 ng/mL (0.0-4.0)
== END ==
LOC: M SFHCCLAY 07:47
PROVIDERS: ATTEND Nurse Practitioner Family
DX: I10 Essential (primary) hypertension (principal); E78.2 Mixed hyperlipidemia; R17 Unspecified jaundice; R97.20 Elevated prostate specific antigen [PSA]

== ENCOUNTER → 2023-07-09 | Outpatient (REF) | payer MEDICARE, OTHER ==
[2023-07-09 17:50] LABS: BASO % 0.4 % (0.0-1.0); EOS # 0.1 10^3/uL (0.0-0.5); HEMATOCRIT 47.2 % (42.0-52.0); HEMOGLOBIN 16.2 g/dl (13.5-17.5); LYMPH # 2.8 10^3/uL (1.5-5.0); LYMPH % 35.7 % (24.0-44.0); MEAN CORPUSCULAR HEMOGLOBIN 30.6 pg (27.0-33.0); MEAN CORPUSCULAR HGB CONC 34.3 g/dl (32.0-36.5); MEAN CORPUSCULAR VOLUME 89.1 fl (80.0-96.0); MONO # 0.7 10^3/uL (0.0-0.8); MONO % 9.4 % (2.0-8.0); NEUTROPHILS # 4.1 10^3/uL (1.5-8.5); NEUTROPHILS % 53.2 % (36.0-66.0); PLATELET COUNT, AUTOMATED 271 10^3/uL (150-450); WHITE BLOOD COUNT 7.8 10^3/uL (4.0-10.0)
[2023-07-09 18:06] LABS: ALBUMIN 3.7 G/DL (3.2-5.2); ALKALINE PHOSPHATASE 94 U/L (46-116); ALT/SGPT 30 U/L (7.0-40); AST/SGOT 30 U/L (<34); BILIRUBIN,TOTAL 0.7 MG/DL (0.3-1.2); BLOOD UREA NITROGEN 20 MG/DL (9-23); CALCIUM LEVEL 9.9 MG/DL (8.3-10.6); CARBON DIOXIDE LEVEL 30 MMOL/L (20-31); CHLORIDE LEVEL 104 MMOL/L (98-107); CHOLESTEROL LEVEL 124 MG/DL (<200); GLOMERULAR FILTRATION RATE > 60.0 (>42); GLUCOSE, FASTING 72 MG/DL (74-106); HDL CHOLESTEROL 49.5 MG/DL (>40); LDL CHOLESTEROL 49.1 MG/DL (<100); NON-HDL-C 74.5 MG/DL; POTASSIUM SERUM 3.6 MMOL/L (3.5-5.1); SODIUM LEVEL 143 MMOL/L (136-145); TOTAL PROTEIN 6.4 G/DL (5.7-8.2); TRIGLYCERIDES LEVEL 127 MG/DL (<150)
[2023-07-09 18:16] LABS: HEMOGLOBIN A1c 5.6 % (4.0-6.0)
== END ==
LOC: M SFHCCLAY 09:16
PROVIDERS: ATTEND Nurse Practitioner Family
DX: Z01.818 Encounter for other preprocedural examination (principal); E78.2 Mixed hyperlipidemia; Z79.899 Other long term (current) drug therapy

== ENCOUNTER → 2023-07-09 | Outpatient (CLI) | payer MEDICARE, OTHER | LOC: M CLY 09:35 | PROVIDERS: ATTEND Nurse Practitioner Family | DX: Z01.818 Encounter for other preprocedural examination (principal); I25.10 Atherosclerotic heart disease of native coronary artery without angina pectoris ==

== ENCOUNTER → 2023-11-22 | Outpatient (REF) | payer MEDICARE, OTHER ==
[2023-11-22 17:21] LABS: BASO % 0.5 % (0.0-1.0); EOS # 0.2 10^3/uL (0.0-0.5); HEMATOCRIT 43.2 % (42.0-52.0); HEMOGLOBIN 14.8 g/dl (13.5-17.5); LYMPH # 2.5 10^3/uL (1.5-5.0); LYMPH % 40.8 % (24.0-44.0); MEAN CORPUSCULAR HEMOGLOBIN 29.7 pg (27.0-33.0); MEAN CORPUSCULAR HGB CONC 34.3 g/dl (32.0-36.5); MEAN CORPUSCULAR VOLUME 86.7 fl (80.0-96.0); MONO # 0.7 10^3/uL (0.0-0.8); MONO % 10.6 % (2.0-8.0); NEUTROPHILS # 2.8 10^3/uL (1.5-8.5); NEUTROPHILS % 44.9 % (36.0-66.0); PLATELET COUNT, AUTOMATED 293 10^3/uL (150-450); RED BLOOD COUNT 4.98 10^6/uL (4.30-6.10); WHITE BLOOD COUNT 6.2 10^3/uL (4.0-10.0)
[2023-11-22 17:25] LABS: TOTAL IRON BINDING CAPACITY 323 UG/DL (250-425)
[2023-11-22 17:27] LABS: ALBUMIN 3.3 G/DL (3.2-5.2); ALKALINE PHOSPHATASE 84 U/L (46-116); ALT/SGPT 18 U/L (7.0-40); AST/SGOT 20 U/L (<34); BILIRUBIN,TOTAL 0.8 MG/DL (0.3-1.2); BLOOD UREA NITROGEN 12 MG/DL (9-23); CALCIUM LEVEL 9.1 MG/DL (8.3-10.6); CARBON DIOXIDE LEVEL 34 MMOL/L (20-31); CHLORIDE LEVEL 100 MMOL/L (98-107); CHOLESTEROL LEVEL 134 MG/DL (<200); CHOLESTEROL RISK RATIO 2.38 (<5); CREATININE FOR GFR 0.71 MG/DL (0.70-1.30); GLOMERULAR FILTRATION RATE > 60.0 (>42); GLUCOSE, FASTING 101 MG/DL (74-106); HDL CHOLESTEROL 56.2 MG/DL (>40); IRON (FE) 65 UG/DL (65-175); LDL CHOLESTEROL 56.8 MG/DL (<100); NON-HDL-C 77.8 MG/DL; PERCENT SATURATION 20.1 % (19.7-50.0); POTASSIUM SERUM 3.4 MMOL/L (3.5-5.1); SODIUM LEVEL 139 MMOL/L (136-145); TOTAL PROTEIN 6.3 G/DL (5.7-8.2); TRIGLYCERIDES LEVEL 105 MG/DL (<150)
== END ==
LOC: M SFHCCLAY 10:29
PROVIDERS: ATTEND Nurse Practitioner Family
DX: R97.20 Elevated prostate specific antigen [PSA] (principal); I25.10 Atherosclerotic heart disease of native coronary artery without angina pectoris; D50.8 Other iron deficiency anemias; E78.2 Mixed hyperlipidemia; I10 Essential (primary) hypertension

== ENCOUNTER 2024-04-17 11:47 | Day surgery (SDC) | payer MEDICARE, OTHER ==
[~2024-04-17] VITALS: Ht 172.7 cm; Wt 89.8 kg
[~2024-04-17 11:47] MED LIST changes: -ATOR80TA59; +ATOR80TA59 PO; +CHLO25TA PO; -CHLO50TA; +CHLO50TA PO; +ENTR1TAB7 PO; -EZET10TA21; +EZET10TA21 PO; -FINA5TAB2; +FINA5TAB2 PO; +JARD1TAB PO; -LOSA100T46; +LOSA100T46 PO; +METO1TAB32 PO; +MONT10TA97 PO; +NS 1,000 ML IV ONE; +POTA-149 PO; -TAMS1CAP17; +TAMS1CAP17 PO
[2024-04-17] MEDS ORDERED: propofoL 200 MG/20 ML VIAL As Ordered ONE (12:53)
[2024-04-17] MEDS ORDERED: LIDOCAINE 2% 100MG/5ML SDV (FOR ANES.) As Ordered ONE (12:53)
[2024-04-17 13:41] VITALS: BP 180/84; O2SAT 96
== END 2024-04-17 13:46 | disposition home or self-care (01) ==
LOC: M OPP 11:47
PROVIDERS: ATTEND Internal Medicine Gastroenterology
DX: Z86.010 Personal history of colon polyps (principal); K64.0 First degree hemorrhoids; K57.30 Diverticulosis of large intestine without perforation or abscess without bleeding; I25.2 Old myocardial infarction; I10 Essential (primary) hypertension; E78.5 Hyperlipidemia, unspecified; G47.33 Obstructive sleep apnea (adult) (pediatric); F10.10 Alcohol abuse, uncomplicated; Z87.891 Personal history of nicotine dependence; Z79.899 Other long term (current) drug therapy; Z88.5 Allergy status to narcotic agent

== ENCOUNTER 2024-04-27 10:27 | Emergency (ER) | payer MEDICARE, OTHER ==
[~2024-04-27] VITALS: Ht 172.7 cm; Wt 90.6 kg
[~2024-04-27 10:27] MED LIST changes: -NS 1,000 ML IV ONE
[2024-04-27 11:00] LABS: BASO % 0.4 % (0.0-1.0); EOS # 0.2 10^3/uL (0.0-0.5); EOS % 2.6 % (0.0-3.0); HEMATOCRIT 43.3 % (42.0-52.0); HEMOGLOBIN 15.3 g/dl (13.5-17.5); LYMPH # 2.1 10^3/uL (1.5-5.0); LYMPH % 26.8 % (24.0-44.0); MEAN CORPUSCULAR HEMOGLOBIN 30.6 pg (27.0-33.0); MEAN CORPUSCULAR HGB CONC 35.3 g/dl (32.0-36.5); MEAN CORPUSCULAR VOLUME 86.6 fl (80.0-96.0); MONO # 0.7 10^3/uL (0.0-0.8); MONO % 8.1 % (2.0-8.0); PLATELET COUNT, AUTOMATED 237 10^3/uL (150-450)
[2024-04-27 11:29] LABS: CK-MB VALUE MASS < 1.0 NG/ML (<3.6)
[2024-04-27 11:31] LABS: BLOOD UREA NITROGEN 9 MG/DL (9-23); CALCIUM LEVEL 9.1 MG/DL (8.3-10.6); CARBON DIOXIDE LEVEL 28 MMOL/L (20-31); CHLORIDE LEVEL 101 MMOL/L (98-107); CPK CREATINE PHOSPHOKINASE 102 U/L (46-171); CREATININE FOR GFR 0.66 MG/DL (0.70-1.30); GLOMERULAR FILTRATION RATE > 60.0 (>42); GLUCOSE, FASTING 91 MG/DL (74-106); MB/CK RELATIVE INDEX 0.98 (< OR =4); POTASSIUM SERUM 3.3 MMOL/L (3.5-5.1); SODIUM LEVEL 136 MMOL/L (136-145)
[2024-04-27] MEDS ORDERED: ACET650T15 PO (11:59)
[2024-04-27] MEDS ORDERED: HOME MED LIST COMPLETE! XX SCH (12:15)
[2024-04-27 12:33] LABS: CK-MB VALUE MASS < 1.0 NG/ML (<3.6)
[2024-04-27 12:34] LABS: INR 0.96; PROTHROMBIN TIME 12.5 SECONDS (12.5-14.5)
[2024-04-27 12:35] LABS: CPK CREATINE PHOSPHOKINASE 109 U/L (46-171); MB/CK RELATIVE INDEX 0.91 (< OR =4)
[2024-04-27] MEDS ORDERED: ISOVUE-370 76% 100ML VIAL As Ordered ONE (13:31)
[2024-04-27 15:10] LABS: CK-MB VALUE MASS < 1.0 NG/ML (<3.6)
[2024-04-27 15:12] LABS: CPK CREATINE PHOSPHOKINASE 67 U/L (46-171); MB/CK RELATIVE INDEX 1.49 (< OR =4)
[2024-04-27 15:30] VITALS: BP 148/92; O2SAT 96
[2024-04-27] MEDS ORDERED: FLUT1BLS2 IH (15:37)
[2024-04-27] MEDS ORDERED: CLOP75TA99 PO (15:37)
[2024-04-27 15:49] VITALS: TEMP 96.9
[2024-04-27] MEDS: CLOPIDOGREL 75 MG TAB PO STA (15:54)
== END 2024-04-27 16:01 | disposition home or self-care (01) ==
LOC: M ED 10:27
DX: R07.9 Chest pain, unspecified (principal); J98.01 Acute bronchospasm; I25.2 Old myocardial infarction; I10 Essential (primary) hypertension; E78.5 Hyperlipidemia, unspecified; Z88.5 Allergy status to narcotic agent; Z87.891 Personal history of nicotine dependence; Z79.82 Long term (current) use of aspirin; Z79.02 Long term (current) use of antithrombotics/antiplatelets; Z79.899 Other long term (current) drug therapy
CPT/HCPCS: 36415; 71045; 71275; 80048; 82550; 82553; 83880; 84484; 85025; 85610; 85730; 93005; 93041; 94760; 99285; Q9967

== ENCOUNTER 2024-05-08 14:19 | Emergency (ER) | payer MEDICARE, OTHER ==
[~2024-05-08] VITALS: Ht 172.7 cm; Wt 98.6 kg
[~2024-05-08 14:19] MED LIST changes: +ACET650T15 PO; +CLOP75TA99 PO; +FLUT1BLS2 IH
[2024-05-08 15:08] LABS: BASO % 0.5 % (0.0-1.0); EOS # 0.2 10^3/uL (0.0-0.5); EOS % 3.1 % (0.0-3.0); HEMATOCRIT 40.9 % (42.0-52.0); HEMOGLOBIN 14.6 g/dl (13.5-17.5); LYMPH # 1.9 10^3/uL (1.5-5.0); LYMPH % 29.3 % (24.0-44.0); MEAN CORPUSCULAR HEMOGLOBIN 30.9 pg (27.0-33.0); MEAN CORPUSCULAR HGB CONC 35.7 g/dl (32.0-36.5); MEAN CORPUSCULAR VOLUME 86.5 fl (80.0-96.0); MONO # 0.7 10^3/uL (0.0-0.8); NEUTROPHILS # 3.7 10^3/uL (1.5-8.5); NEUTROPHILS % 56.8 % (36.0-66.0); PLATELET COUNT, AUTOMATED 249 10^3/uL (150-450); RED BLOOD COUNT 4.73 10^6/uL (4.30-6.10); WHITE BLOOD COUNT 6.5 10^3/uL (4.0-10.0)
[2024-05-08 15:36] LABS: CPK CREATINE PHOSPHOKINASE 132 U/L (46-171)
[2024-05-08 15:39] LABS: LIPASE 32 U/L (12-53)
[2024-05-08] MEDS ORDERED: ISOVUE-370 76% 100ML VIAL As Ordered ONE (15:42)
[2024-05-08 15:44] LABS: FREE T4 1.35 NG/DL (0.89-1.76); THYROID STIMULATING HORMONE 2.845 uIU/ML (0.55-4.78)
[2024-05-08 15:49] LABS: ALBUMIN 3.4 G/DL (3.2-5.2); ALKALINE PHOSPHATASE 92 U/L (46-116); ALT/SGPT 17 U/L (7.0-40); AST/SGOT 16 U/L (<34); BILIRUBIN,DIRECT 0.4 MG/DL (<0.4); BLOOD UREA NITROGEN 13 MG/DL (9-23); CARBON DIOXIDE LEVEL 31 MMOL/L (20-31); CHLORIDE LEVEL 101 MMOL/L (98-107); CK-MB VALUE MASS 1.4 NG/ML (<3.6); CREATININE FOR GFR 0.73 MG/DL (0.70-1.30); GLOMERULAR FILTRATION RATE > 60.0 (>42); GLUCOSE, FASTING 87 MG/DL (74-106); MB/CK RELATIVE INDEX 1.06 (< OR =4); POTASSIUM SERUM 2.8 MMOL/L (3.5-5.1); SODIUM LEVEL 138 MMOL/L (136-145); TOTAL PROTEIN 6.2 G/DL (5.7-8.2)
[2024-05-08 16:38] LABS: CK-MB VALUE MASS 1.7 NG/ML (<3.6); MAGNESIUM LEVEL 1.9 MG/DL (1.8-2.4)
[2024-05-08 16:40] LABS: MB/CK RELATIVE INDEX 1.27 (< OR =4)
[2024-05-08] MEDS: POTASSIUM CHLORIDE 10MEQ SR TABLET PO ONE ×2 (16:53→21:51)
[2024-05-08 18:16] LABS: CK-MB VALUE MASS 1.2 NG/ML (<3.6)
[2024-05-08 18:17] LABS: MB/CK RELATIVE INDEX 0.96 (< OR =4)
[2024-05-08 18:56] LABS: INR 0.92; PARTIAL THROMBOPLASTIN TIME 28.2 SECONDS (24.8-34.2); PROTHROMBIN TIME 12.1 SECONDS (12.5-14.5)
[2024-05-08] MEDS: HEPARIN DRIP 25,000 UNITS in IV 1 EA IV SCH (18:56)
[2024-05-08] MEDS ORDERED: HEPARIN SOD (PORCINE) 5000UNITS/ML 1ML VIAL/SYRINGE IV PRN (19:30)
[2024-05-08] MEDS ORDERED: MAALOX 30 ML SUSP *UDC PO PRN (19:45)
[2024-05-08] MEDS ORDERED: ACETAMINOPHEN 325 MG TAB PO PRN (19:45)
[2024-05-08] MEDS ORDERED: MOM 30ML SUSPENSION UDC PO PRN (19:45)
[2024-05-08 20:37] LABS: HEMATOCRIT 39.2 % (42.0-52.0); HEMOGLOBIN 14.3 g/dl (13.5-17.5); MEAN CORPUSCULAR HEMOGLOBIN 31.4 pg (27.0-33.0); MEAN CORPUSCULAR HGB CONC 36.5 g/dl (32.0-36.5); PLATELET COUNT, AUTOMATED 246 10^3/uL (150-450); RED BLOOD COUNT 4.56 10^6/uL (4.30-6.10)
[2024-05-08] MEDS: DOCUSATE SODIUM 100MG CAPSULE PO SCH (21:05)
[2024-05-08 21:06] LABS: BLOOD UREA NITROGEN 11 MG/DL (9-23); CALCIUM LEVEL 8.9 MG/DL (8.3-10.6); CARBON DIOXIDE LEVEL 32 MMOL/L (20-31); CHLORIDE LEVEL 100 MMOL/L (98-107); CREATININE FOR GFR 0.75 MG/DL (0.70-1.30); GLOMERULAR FILTRATION RATE > 60.0 (>42); GLUCOSE, FASTING 120 MG/DL (74-106); MAGNESIUM LEVEL 1.9 MG/DL (1.8-2.4); POTASSIUM SERUM 3.1 MMOL/L (3.5-5.1); SODIUM LEVEL 138 MMOL/L (136-145)
[2024-05-09] MEDS: POTASSIUM CHLORIDE 10MEQ SR TABLET PO ONE
[2024-05-09 01:36] LABS: BLOOD UREA NITROGEN 12 MG/DL (9-23); CALCIUM LEVEL 8.8 MG/DL (8.3-10.6); CARBON DIOXIDE LEVEL 30 MMOL/L (20-31); CHLORIDE LEVEL 103 MMOL/L (98-107); CREATININE FOR GFR 0.77 MG/DL (0.70-1.30); GLOMERULAR FILTRATION RATE > 60.0 (>42); GLUCOSE, FASTING 99 MG/DL (74-106); MAGNESIUM LEVEL 1.9 MG/DL (1.8-2.4); POTASSIUM SERUM 3.5 MMOL/L (3.5-5.1); SODIUM LEVEL 139 MMOL/L (136-145)
[2024-05-09] MEDS: HEPARIN DRIP 25,000 UNITS in IV 1 EA IV SCH (02:12)
[2024-05-09 05:57] VITALS: TEMP 97.5
[2024-05-09 06:45] VITALS: BP 143/96; O2SAT 95
[2024-05-09] MEDS ORDERED: CLOP75TA99 PO (07:05)
[2024-05-09] MEDS ORDERED: HOME MED LIST COMPLETE! XX SCH (07:05)
== END 2024-05-09 06:58 | disposition short-term general hospital (02) ==
LOC: M ED 14:19 → EDBD 14:19 → M ED 05-09 06:58
DX: I20.0 Unstable angina (principal); I44.4 Left anterior fascicular block; I45.9 Conduction disorder, unspecified; I10 Essential (primary) hypertension; E78.5 Hyperlipidemia, unspecified; F41.9 Anxiety disorder, unspecified; J44.9 Chronic obstructive pulmonary disease, unspecified; N40.0 Benign prostatic hyperplasia without lower urinary tract symptoms; D50.9 Iron deficiency anemia, unspecified; I25.2 Old myocardial infarction; F17.200 Nicotine dependence, unspecified, uncomplicated; F10.10 Alcohol abuse, uncomplicated; Z88.5 Allergy status to narcotic agent; Z79.82 Long term (current) use of aspirin; Z79.02 Long term (current) use of antithrombotics/antiplatelets; Z79.899 Other long term (current) drug therapy
CPT/HCPCS: 71045; 71275; 80047; 80048; 80076; 82550; 82553; 83690; 83735; 83880; 84439; 84443; 84484; 85025; 85027; 85610; 85730; 93005; 93041; 94760; 96365; 96366; 99285; Q9967

== ENCOUNTER → 2024-05-15 | Outpatient (REF) | payer MEDICARE, OTHER ==
[2024-05-17 12:46] LABS: PSA FREE 0.6 ng/mL; PSA TOTAL 5.2 ng/mL (< OR = 4.0)
== END ==
LOC: M SFHCCLAY 14:15
PROVIDERS: ATTEND Nurse Practitioner Family
DX: R97.20 Elevated prostate specific antigen [PSA] (principal)

== ENCOUNTER → 2024-05-23 | Outpatient (REF) | payer MEDICARE, OTHER ==
[2024-05-23 18:00] LABS: HEMOGLOBIN 13.9 g/dl (13.5-17.5); MEAN CORPUSCULAR HGB CONC 34.8 g/dl (32.0-36.5); MEAN CORPUSCULAR VOLUME 89.3 fl (80.0-96.0); PLATELET COUNT, AUTOMATED 309 10^3/uL (150-450); RED BLOOD COUNT 4.48 10^6/uL (4.30-6.10); WHITE BLOOD COUNT 7.7 10^3/uL (4.0-10.0)
[2024-05-23 18:36] LABS: ALBUMIN 3.6 G/DL (3.2-5.2); ALKALINE PHOSPHATASE 96 U/L (40-129); ALT/SGPT 18 U/L (7.0-40); AST/SGOT 18 U/L (<34); BILIRUBIN,TOTAL 1.2 MG/DL (0.3-1.2); BLOOD UREA NITROGEN 15 MG/DL (9-23); CALCIUM LEVEL 9.6 MG/DL (8.3-10.6); CARBON DIOXIDE LEVEL 32 MMOL/L (20-31); CHLORIDE LEVEL 102 MMOL/L (98-107); CREATININE FOR GFR 0.79 MG/DL (0.70-1.30); FREE T4 1.25 NG/DL (0.89-1.76); GLOMERULAR FILTRATION RATE > 60.0 (>42); GLUCOSE, FASTING 92 MG/DL (74-106); POTASSIUM SERUM 3.8 MMOL/L (3.5-5.1); SODIUM LEVEL 138 MMOL/L (136-145); TOTAL PROTEIN 6.7 G/DL (5.7-8.2)
== END ==
LOC: M SFHCCLAY 10:30
PROVIDERS: ATTEND Nurse Practitioner Family
DX: I49.9 Cardiac arrhythmia, unspecified (principal)

== ENCOUNTER → 2024-08-28 | Outpatient (CLI) | payer MEDICARE, OTHER | LOC: M CARPUL 08:53 | PROVIDERS: ATTEND Nurse Practitioner Family | DX: I49.9 Cardiac arrhythmia, unspecified (principal) ==

== ENCOUNTER → 2024-09-27 | Outpatient (REF) | payer MEDICARE, OTHER ==
[2024-09-27 14:07] LABS: BASO % 0.4 % (0.0-1.0); EOS # 0.1 10^3/uL (0.0-0.5); EOS % 1.7 % (0.0-3.0); HEMATOCRIT 45.9 % (42.0-52.0); HEMOGLOBIN 15.5 g/dl (13.5-17.5); LYMPH # 2.4 10^3/uL (1.5-5.0); LYMPH % 34.4 % (24.0-44.0); MEAN CORPUSCULAR HEMOGLOBIN 29.4 pg (27.0-33.0); MEAN CORPUSCULAR HGB CONC 33.8 g/dl (32.0-36.5); MEAN CORPUSCULAR VOLUME 86.9 fl (80.0-96.0); MONO # 0.8 10^3/uL (0.0-0.8); MONO % 10.6 % (2.0-8.0); NEUTROPHILS # 3.7 10^3/uL (1.5-8.5); NEUTROPHILS % 52.5 % (36.0-66.0); PLATELET COUNT, AUTOMATED 259 10^3/uL (150-450); RED BLOOD COUNT 5.28 10^6/uL (4.30-6.10); WHITE BLOOD COUNT 7.1 10^3/uL (4.0-10.0)
[2024-09-27 14:12] LABS: IRON (FE) 66 UG/DL (65-175); PERCENT SATURATION 17.6 % (19.7-50.0); TOTAL IRON BINDING CAPACITY 374 UG/DL (250-425)
[2024-09-27 14:13] LABS: ALBUMIN 3.5 G/DL (3.2-5.2); ALKALINE PHOSPHATASE 87 U/L (40-129); ALT/SGPT 20 U/L (7.0-40); AST/SGOT 23 U/L (<34); BLOOD UREA NITROGEN 15 MG/DL (9-23); CALCIUM LEVEL 8.8 MG/DL (8.3-10.6); CARBON DIOXIDE LEVEL 30 MMOL/L (20-31); CHLORIDE LEVEL 102 MMOL/L (98-107); CHOLESTEROL LEVEL 132 MG/DL (<200); CHOLESTEROL RISK RATIO 2.21 (<5); CREATININE FOR GFR 0.85 MG/DL (0.70-1.30); GLOMERULAR FILTRATION RATE > 60.0 (>42); GLUCOSE, FASTING 88 MG/DL (74-106); HDL CHOLESTEROL 59.5 MG/DL (>40); LDL CHOLESTEROL 51.1 MG/DL (<100); NON-HDL-C 72.5 MG/DL; POTASSIUM SERUM 3.4 MMOL/L (3.5-5.1); SODIUM LEVEL 140 MMOL/L (136-145); TOTAL PROTEIN 6.4 G/DL (5.7-8.2); TRIGLYCERIDES LEVEL 107 MG/DL (<150)
[2024-09-27 14:14] LABS: FREE T4 1.31 NG/DL (0.89-1.76)
[2024-09-27 14:15] LABS: FERRITIN 16.8 NG/ML (10.5-307.3); TESTOSTERONE 595 NG/DL (241-827)
[2024-09-27 14:48] LABS: HEMOGLOBIN A1c 5.6 % (4.0-6.0)
== END ==
LOC: M SFHCCLAY 09:30
PROVIDERS: ATTEND Nurse Practitioner Family
DX: R53.83 Other fatigue (principal); R91.1 Solitary pulmonary nodule; R06.02 Shortness of breath; E87.6 Hypokalemia; I72.9 Aneurysm of unspecified site; Z79.899 Other long term (current) drug therapy; D50.8 Other iron deficiency anemias

== ENCOUNTER → 2024-10-10 | Outpatient (CLI) | payer MEDICARE, OTHER | LOC: M SLEEP HO 08:35 | PROVIDERS: ATTEND Nurse Practitioner Family | DX: R53.83 Other fatigue (principal); G47.30 Sleep apnea, unspecified ==

== ENCOUNTER → 2024-11-17 | Outpatient (REF) | payer MEDICARE, OTHER | LOC: M SFHCCLAY 10:48 | PROVIDERS: ATTEND Nurse Practitioner Family | DX: E87.6 Hypokalemia (principal) ==

== ENCOUNTER → 2025-05-02 | Outpatient (REF) | payer MEDICARE, OTHER ==
[~2025-05-02] MED LIST changes: +ACET-1515 PO; -ACET650T15 PO; -EZET10TA21 PO; +EZET10TA57 PO; +MECL-86 PO
[2025-05-02 19:24] LABS: ALT/SGPT 24 U/L (7.0-40); AST/SGOT 21 U/L (<34); CALCIUM LEVEL 9.4 MG/DL (8.3-10.6); CARBON DIOXIDE LEVEL 28 MMOL/L (20-31); CHLORIDE LEVEL 101 MMOL/L (98-107); CHOLESTEROL LEVEL 150 MG/DL (<200); CHOLESTEROL RISK RATIO 2.40 (<5); CREATININE FOR GFR 0.74 MG/DL (0.70-1.30); GLOMERULAR FILTRATION RATE > 90.0 (>42); LDL CHOLESTEROL 49.0 MG/DL (<100); NON-HDL-C 87.6 MG/DL; POTASSIUM SERUM 3.6 MMOL/L (3.5-5.1); SODIUM LEVEL 140 MMOL/L (136-145); TRIGLYCERIDES LEVEL 193 MG/DL (<150)
[2025-05-02 19:57] LABS: ESTIMATED AVERAGE GLUCOSE 117.0 MG/DL (60-110)
== END ==
LOC: M SFHCCLAY 11:32
PROVIDERS: ATTEND Nurse Practitioner Family
DX: Z00.00 Encounter for general adult medical examination without abnormal findings (principal); E87.6 Hypokalemia; R53.83 Other fatigue; R06.02 Shortness of breath; R91.1 Solitary pulmonary nodule; I72.9 Aneurysm of unspecified site; E78.00 Pure hypercholesterolemia, unspecified; R97.20 Elevated prostate specific antigen [PSA]; I25.10 Atherosclerotic heart disease of native coronary artery without angina pectoris; Z79.899 Other long term (current) drug therapy; Z79.82 Long term (current) use of aspirin; Z88.5 Allergy status to narcotic agent; Z79.51 Long term (current) use of inhaled steroids; Z87.891 Personal history of nicotine dependence

== ENCOUNTER → 2025-06-12 | Outpatient (REF) | payer MEDICARE, OTHER ==
[2025-06-14 10:36] LABS: PSA % FREE 13.0 % (calc) (>25); PSA FREE 0.5 ng/mL; PSA TOTAL 4.0 ng/mL (< OR = 4.0)
== END ==
LOC: M LABSMT 08:58
PROVIDERS: ATTEND Urology
DX: R97.20 Elevated prostate specific antigen [PSA] (principal)